=== PATIENT | female | born 1980 | race African-American/Black ===

== ENCOUNTER 2019-07-08 10:24 | Outpatient (CLI) | payer MEDICAID, SELFPAY ==
--- NOTE | ~2019-07-08 | MM_ITS ---
EXAMINATION: MM screening [facility] w [facility] HISTORY: Screening mammogram TECHNIQUE: Craniocaudal and mediolateral oblique 3-D tomosynthesis images were obtained and synthetic 2-D images were generated. Bilateral rotated lateral cc views. CAD analysis was submitted and interp reted. COMPARISON: No prior mammogram is available for comparison at this institution. BREAST PARENCHYMAL COMPOSITION: There are scattered areas of fibroglandular density. FINDINGS: Occasional benign right calcifications. There is no evidence of suspicious mass, calcificat ion, or architectural distortion to suggest malignancy in either breast. There has been no suspicious interval change. IMPRESSION: 1. No mammographic evidence of malignancy. 2. Recommend routine screening mammography in one year. BI-RADS Category 2: Benign finding(s). Reviewed, dictated and finalized at location [facility].
== END 2019-07-08 10:25 | disposition home or self-care (01) ==
LOC: ANHIMG 10:29
PROVIDERS: Visit Provider Nurse Practitioner Obstetrics & Gynecology
DX: Z12.31 Encounter for screening mammogram for malignant neoplasm of breast (principal)
CPT/HCPCS: 77063; 77067

== ENCOUNTER 2020-08-09 05:14 | Emergency (ER) | payer BC, SELFPAY ==
[2020-08-09 05:19] VITALS: BP 114/68; PULSE 82; RESP 16; TEMP 36.8; O2SAT 100
== END 2020-08-09 06:40 | disposition left against medical advice (07) ==
PROVIDERS: PCP Family Medicine
DX: S40.022A Contusion of left upper arm, initial encounter (principal)
CPT/HCPCS: 99199

== ENCOUNTER 2021-04-12 13:50 | Outpatient (CLI) | payer BC, SELFPAY ==
--- NOTE | ~2021-04-12 | MM_ITS ---
EXAMINATION: MM screening osvaldo BI w [facility] HISTORY: Screening mammogram TECHNIQUE: Craniocaudal and mediolateral oblique 3-D tomosynthesis images were obtained and synthetic 2-D images were generated. CAD analysis was submitted and interpreted. COMPARISON: 07/08/2019 BREAST PARENCHYMAL COMPOSITION: There are scattered areas of fibroglandular density. FINDINGS: RIGHT BREAST: An asymmetry is present in the middle third of the upper outer quadrant of the breast o n the mediolateral oblique view. LEFT BREAST: There is no evidence of suspicious mass, calcification, or architectural distortion to s uggest malignancy. There has been no significant interval change. IMPRESSION: 1. Left breast asymmetry. 2. Additional mammographic views and possible breast ultrasound are recommended. BI-RADS Category 0: Incomplete: Needs additional imaging evaluation. Reviewed, dictated and finalized at location [facility]. [employer] IMPRESSION: 1. Left breast asymmetry. 2. Additional mammographic views and possible breast ultrasound are recommended . BI-RADS Category 0: Incomplete: Needs additional imaging evaluation.
== END 2021-04-12 13:51 | disposition home or self-care (01) ==
LOC: ANHIMG 13:54
PROVIDERS: PCP Family Medicine; Visit Provider Nurse Practitioner Obstetrics & Gynecology
DX: Z12.31 Encounter for screening mammogram for malignant neoplasm of breast (principal); R92.8 Other abnormal and inconclusive findings on diagnostic imaging of breast
CPT/HCPCS: 77063; 77067

== ENCOUNTER 2021-06-23 21:05 | Emergency (ER) | payer BC, SELFPAY ==
--- NOTE | ~2021-06-23 | CT_ITS ---
EXAMINATION: CT abdomen pelvis w con DATE: 06/23/2021 22:47 INDICATION: Lower abdominal pain, colitis for 2 to 3 weeks. Nausea, vomiting, diarrhea. TECHNIQUE: Computed tomography (CT) of the abdomen and pelvis was performed with 100 CC Omnipaque 350 intravenous contrast. Automated exposure control and iterative reconstruction technique were employe d. Exam dose: 364.01 mGy-cm total exam DLP. COMPARISON: None. FINDINGS: The lung bases are clear of consolidation. Heart size is within normal range. No pericardia l or pleural effusion. There is focal fatty infiltration of the medial segment of the left hepatic lobe along the fissure fo r the ligamentum teres. No hepatic, splenic, pancreatic, and adrenal or renal space-occupying mass le hitesh is detected. Normal caliber of the abdominal aorta. No intraperitoneal or retroperitoneal or pelvic mass lesion or adenopathy or ascites. There is mild fluid accumulation in the uterine endometrial cavity. No adnexal mass lesion is evident . Normal appendix. There is circumferential prominent soft tissue thickening throughout the rectum and colon of concern for possible ulcerative colitis rather inflammatory or infectious diffuse colitis. There are nondilat ed fluid distended small bowel segments with air-fluid levels. No bowel obstruction or intraperitoneal free air is detected. IMPRESSION: Prominent circumferential diffuse colon wall thickening, from rectum to cecum; ulcerativ e colitis or other inflammatory or infectious colitis versus suspected there may be associated enteri tis. Normal appendix Reviewed, dictated and finalized at [facility]. Reviewed, dictated and finalized at location [facility]. IMPRESSION: Prominent circumferential diffuse colon wall thickening, from rect um to cecum; ulcerative colitis or other inflammatory or infectious colitis gricelda nader suspected there may be associated enteritis. Normal appendix
[2021-06-23 21:06] VITALS: BP 135/60; PULSE 80; RESP 16; TEMP 36.2; O2SAT 100
--- NOTE | 2021-06-23 21:38 | ED.ABDPAIN ---
HPI - Abdominal Pain General Chief Complaint: Nausea/Vomiting/Diarrhea Stated Complaint: stomach flu Time Seen by Provider: 06/23/21 21:17 Source: patient and RN notes reviewed Mode of arrival: ambulatory Limitations: no limitations History of Present Illness HPI narrative: 40-year-old female with history of colitis presenting to the emergency department for evaluation of nausea vomiting and diarrhea. Patient states she had intermittent issues with her colitis over the last 10 years. Patient states she does have follow-up with GI. Patient was unsure if her diagnosis was ulcerative colitis. Patient states since the she has had increased diarrhea and has had multiple pounds of weight loss. Patient denies any significant abdominal pain except for when she is passing stool. Patient states he did have some blood stool. Patient states she has been unable to retain her mesalamine suppository due to her diarrhea. Patient states today she was started on p.o. mesalamine. Patient is currently not on any prednisone. Related Data Home Medications Medication Instructions Recorded Confirmed amlodipine 5 mg PO DAILY 06/23/21 mesalamine 1.2 g PO QID 06/23/21 06/23/21 Allergies Allergy/AdvReac Type Severity Reaction Status Date / Time diphenhydramine Allergy Unknown Hives Verified 06/23/21 21:05 Review of Systems Review of Systems: CONSTITUTIONAL: Denies fever, chills, or sweats. EYES: Denies visual changes, redness, or discharge. ENT: Denies rhinorrhea, congestion, sore throat, or otalgia. CARDIOVASCULAR: Denies chest pain, palpitations, or edema. RESPIRATORY: Denies cough or dyspnea. GASTROINTESTINAL: Diarrhea and intermittent abdominal pain. Patient does report some nausea without vomiting. GENITOURINARY: Denies dysuria or hematuria. SKIN: Denies rash or itching. MUSCULOSKELETAL: Denies back pain, joint pain, or myalgia. NEUROLOGIC: Denies headache, numbness, or weakness. [facility] Family History Family History (Updated 11/13/13 @ 07:13 by DOCTOR UNKNOWN) Mother Hypertension Social History Social History Smoking status: Never smoker Alcohol intake: current Exam Narrative: APPEARANCE: Well appearing, no pain, no distress, well-nourished. HEAD: normocephalic, atraumatic. EYES: PERRLA/EOMI, conjunctivae clear. NOSE: Normal no drainage NECK: Supple. No adenopathy, no masses. RESPIRATORY: Airway patent, respirations nonlabored. Clear to auscultation bilaterally, no rales, rhonchi, wheezing. CARDIOVASCULAR: Regular rate and rhythm without murmurs rubs or gallops. ABDOMINAL: Soft, nontender, nondistended, normal bowel sounds MUSCULOSKELETAL: Moves all extremities. Strength/ROM intact, No edema, No calf tenderness. NEURO: Alert. Cranial nerves II through XII intact. grossly intact. SKIN: Warm, dry. Normal Color Course Course Emergency Course: Patient was updated the results of her labs and imaging. CT scan did show evidence of ulcerative colitis. Patient does have follow-up scheduled with GI. Patient has no leukocytosis and is afebrile with no tenderness to palpation. Treating patient with a dose of steroids and patient will have close follow-up with her GI physician. Patient was educated on reasons to return to the emergency department. All questions and concerns were addressed. Patient was improved at time of discharge Vital Signs Vital signs: Vital Signs Temperature 97.2 F L 06/23/21 21:06 Pulse Rate 80 06/23/21 21:06 Respiratory Rate 16 06/23/21 21:06 Blood Pressure 135/60 06/23/21 21:06 Pulse Oximetry 100 06/23/21 21:06 Temperature 97.2 F L 06/23/21 21:06 Pulse Rate 79 06/23/21 22:59 Respiratory Rate 18 06/23/21 22:59 Blood Pressure 134/71 06/23/21 22:59 Pulse Oximetry 98 06/23/21 22:59 MDM - Abdominal Pain Differential Diagnosis Differential diagnosis: Likely abdominal pain Lab Data Attestation: I reviewed the patient's lab results. Result diagrams: 06/23
[2021-06-23] MEDS: SODIUM CHLORIDE 0.9% IV 1,000 ML 999 ML IV CONT (21:45)
[2021-06-23 21:46] LABS: Basophils Absolute Auto 0.1 K/mm3 (0.0-0.1); Basophils Percent Auto 0.9 % (0.2-1.2); Eosinophils Absolute Auto 0.7 K/mm3 (0-0.3); Eosinophils Percent Auto 12.7 % (0-4.4); Hematocrit 30.9 % (37.0-47.0); Immature Granulocyte Absolute 0.04 K/mm3 (0.00-0.031); Immature Granulocyte Percent A 0.8 % (0-0.5); Lymphocytes Absolute Auto 1.21 K/mm3 (0.9-3.2); Mean Corpuscular HGB Conc 32.4 g/dl (32-36); Mean Corpuscular Hemoglobin 28.1 pg (26-34); Mean Corpuscular Volume 86.8 fl (80-100); Mean Platelet Volume 9.6 fl (7.4-10.4); Monocytes Absolute Auto 0.7 K/mm3 (0.1-0.6); Monocytes Percent Auto 12.9 % (2.6-8.5); Neutrophils Absolute Auto 2.6 K/mm3 (1.3-6.7); Neutrophils Percent Auto 49.7 % (45.5-73.1); Platelet Count Result 450 k/mm3 (150-375); Red Blood Count 3.56 M/mm3 (4.2-5.4); Red Cell Distribution Width 12.7 % (11.5-14.5); White Blood Count 5.3 K/mm3 (4.5-10.0)
[2021-06-23 21:55] LABS: Ovalocytes 1+ (NORMAL); Platelet Estimate Increased (Adequate)
[2021-06-23 22:16] LABS: Alanine Aminotransferase 8 U/L (4-35); Albumin Level 3.1 g/dL (3.5-5.1); Alkaline Phosphatase 65 U/L (38-126); Anion Gap 4 mmol/L (8-16); Aspartate Amino Transferase 25 U/L (14-36); Bilirubin,Total 0.1 mg/dL (0.2-1.3); Blood Urea Nitrogen 8 mg/dL (7-17); Calcium 7.6 mg/dL (8.4-10.2); Carbon Dioxide 28 mmol/L (22-30); Chloride 104 mmol/L (98-107); Estimated CRCL calculation 93 ml/min; Estimated Glomerular Filt Rate > 60; Glucose 122 mg/dL (65-110); Lipase 56 U/L (23-300); Potassium 3.4 mmol/L (3.4-5.0); Sodium 136 mmol/L (137-145)
[2021-06-23 22:39] LABS: Add Urine Microscopic? YES; Appearance Urine Clear (Clear); Bilirubin Urine Negative (Negative); Blood Urine 1+ (Negative); Color Urine Straw (Yellow); Glucose Urine UA Negative (Negative); Ketones Urine Trace mg/dL (Negative); Leukocyte Esterase Ur Negative LEU/UL (Negative); Mucus Urine Rare /lpf; Nitrate Urine Negative (Negative); Protein Urine Negative (Negative); RBC Urine 0-2 /hpf (0-2); Specific Grav Ur 1.012 (1.001-1.035); Squamous Epithelial Cell Urine Few /hpf (Few); Urobilinogen Urine Negative mg/dL (<2.0); WBC Urine 0-3 /hpf
[2021-06-23 22:59] VITALS: BP 134/71; PULSE 79; RESP 18; O2SAT 98
[2021-06-23] MEDS: predniSONE 20 MG TABLET 40 MG PO (23:52)
== END 2021-06-23 23:54 | disposition home or self-care (01) ==
PROVIDERS: Emergency Provider Emergency Medicine; PCP Family Medicine
DX: K52.9 Noninfective gastroenteritis and colitis, unspecified (principal)
CPT/HCPCS: 36415; 74177; 80053; 81001; 81025; 83690; 85025; 96360; 99284; J7030; J7512; Q9967

== ENCOUNTER 2022-08-07 15:00 | Outpatient (CLI) | payer BC, SELFPAY ==
--- NOTE | ~2022-08-07 | MR_ITS ---
EXAMINATION: MR brain/brain stem wo con DATE: 08/07/2022 16:01 INDICATION: Chronic daily headaches. TECHNIQUE: Magnetic resonance imaging (MRI) of the brain and brainstem was performed without intraven ous contrast. COMPARISON: None. FINDINGS: There is no intracranial hemorrhage, acute infarction, or abnormal intracranial mass lesion . The ventricles are normal in size. The paranasal sinuses are clear. The orbits are normal. The mast oid air cells are normal. IMPRESSION: 1. Normal brain. Reviewed, dictated and finalized at location A. IMPRESSION: 1. Normal brain.
== END 2022-08-07 15:01 | disposition home or self-care (01) ==
PROVIDERS: PCP Family Medicine; Visit Provider Family Medicine
DX: R51.9 Headache, unspecified (principal)
CPT/HCPCS: 70551

== ENCOUNTER 2023-05-16 00:37 | Day surgery (SDC) | payer BC, SELFPAY ==
[2023-05-11 17:29] VITALS: BMI 26.6
--- NOTE | 2023-05-11 17:54 | PC.NURSE ---
Report to the Outpatient Waiting Room, entrance under the green pavilion located off [facility], at 1100 on 05-16-23. Planned Procedure Time: 1300. Time changes happen often and if your time is changed the preop area will call you the afternoon before. - You and your visitor will be asked to self-screen and do not enter if you have any COVID symptoms. - A mask is optional within the hospital at this time. Patients may have clear liquids (water, carbonated beverages, clear teas, apple juice) until 3 hours prior to surgery with a maximum of 20 ounces. 1000 - No food from midnight until time of surgery - Infants may have breast milk until 4 hours before surgery, formula 6 hours prior to surgery. - Children will be allowed to drink immediately following surgery. If applicable, please bring a bottle or sippy cup to assist with drinking. Juice, water, soda, and popsicles are readily available. For infants on formula, please bring formula the day of surgery. Pacifiers are allowed. Take the following medications with a SIP of water the morning of surgery: amlodipine. propanolol Bring inhaler DOS DO NOT STOP ANY OF YOUR OTHER PRESCRIPTION MEDICATIONS PRIOR TO SURGERY ?EXCEPT THE FOLLOWING Medications to discontinue per physician: vitamins and supplements Date to take last dose: 05-13-23 Please no make-up, nail khmer, hairspray, perfume, deodorant, or body powder the day of surgery. No jewelry (including any body piercings) or valuables the day of surgery, leave them at home. Please take a shower or bath the night before, or the morning of, surgery with an antibacterial soap. Wear comfortable, loose fitting clothing. Children are encouraged to wear pajamas. - Jewelry must be removed prior to entering the operating room. Rings and piercings that are not removed may be cut off. - The hospital will not accept responsibility for valuables. - Please leave all valuables, including medications, at home the day of surgery. If you are going home after surgery, a licensed water tanker driver must drive you home. - NO public transportation without another adult if you receive anesthesia. - We recommend that an adult stay with you for 24 hours following discharge. - We also recommend that you do not drive, make important decision, drink alcoholic beverages, or take any drugs that were not prescribed by your health care provider for at least 24 hours after your discharge time. For Pediatric surgeries, we recommend two adults accompany the child home. Follow any additional instructions given to you from your surgeon. If you or anyone in your household have experienced Covid symptoms in the past week, please notify your surgeon or the nurse liaison at the phone number below for possible testing. Telephone instructions given to Adelita Dhillon and asked if any additional questions and then verbalized understanding. Patient advised to call surgeon office or pre surgery nurse liaison [phone] if any additional questions.
[2023-05-16 11:13] VITALS: BP 120/72; PULSE 60; RESP 18; TEMP 36.2; O2SAT 100
--- NOTE | 2023-05-16 11:38 | P.PNAN_ITS ---
Anes - Initial Pre Proc Eval Procedure: Operation Date: 05/16/23 13:00 Proposed Procedures p Hysteroscopy with Francisca Endometrial Ablation - Brittnee Edwards MD Date/Time: 05/16/23 11:38 Surgeon: Brittnee Edwards MD Pre Op Diagnosis: Menorrhagia Patient Data Age: 42 Gender: F Height: 1.68 m Weight: 75 kg Last Vital Signs Temp 36.2 C L 05/16/23 11:13 Pulse 60 05/16/23 11:13 Resp 18 05/16/23 11:13 BP 120/72 05/16/23 11:13 Pulse Ox 100 05/16/23 11:13 O2 Del Method Room Air 05/16/23 11:13 Allergies Allergy/AdvReac Type Severity Reaction Status Date / Time diphenhydramine Allergy Mild Hives Verified 05/16/23 11:34 dairy Allergy Mild Nausea Uncoded 05/16/23 11:34 Home Medications Medication Instructions Recorded Confirmed Type amlodipine 5 mg tablet 5 mg PO DAILY 06/23/21 05/16/23 History mesalamine 1.2 gram tablet,delayed 1.2 g PO TID 06/23/21 05/16/23 History release albuterol sulfate 90 mcg/actuation See Rx Instructions .Route .COMPLEX 05/11/23 05/16/23 History aerosol inhaler clindamycin HCl 300 mg capsule 300 mg PO BID 05/11/23 05/16/23 History multivit with minerals-iron 18 1 tablet PO DAILY 05/11/23 05/16/23 History mg-folic ac 400 mcg-vit K 25 mcg tablet (Adults Multivitamin) propranolol 20 mg tablet 20 mg PO TID 05/11/23 05/16/23 History soy isoflavone 40 mg tablet 20 mg PO DAILY 05/11/23 05/16/23 History Patient hx anesthesia problems: none Family hx anesthesia problems: none Results Review: All pre-operative results and documents have been reviewed as part of the pre- operative evaluation. [facility] Past Medical History Medical History (Updated 05/16/23 @ 11:39 by Donovan Granger MD) Abnormal uterine and vaginal bleeding, unspecified Colitis Family History Family History Mother Hypertension Social History Social History Smoking status: Never smoker Second hand tobacco smoke exposure: No Alcohol intake: current Drinks per week: 6 Alcohol use details: mixed drinks Substance use: never Substance use type: does not use Living arrangements: with family Spiritual care concerns: No Anes - Eval Final PreProcedure Day of Procedure 05/16/23 11:38 Patient weight: overweight Last oral intake: >/= 8 hours ASA classification: II Emergent: no Anesthetic plan: proceed Anesthesia type and monitoring: general GIVS and standard monitoring Results Review: All pre-operative results and documents have been reviewed as part of the pre- operative evaluation. Informed Consent: The patient's anesthetic plan and its attendant risks and benefits were discussed with the patient/family/POA. Questions were solicited and answers provided to the satisfaction of the patient/family/POA.
[2023-05-16] MEDS: LACTATED RINGERS 1,000 ML 30 ML IV CONT (11:45)
--- NOTE | 2023-05-16 13:10 | PM.IMHP ---
H&P: HPI History of Present Illness Date/Time: 05/16/23 13:10 Chief Complaint: heavy Vaginal bleeding Narrative: this patient is a 42-year-old female with severe menorrhagia. We have agreed to perform endometrial ablation with hysteroscopy. She understands the procedure. Has been explained to her in detail. She understands that injuries may occur that result in hospitalization, more surgery, and severe illness. She understands that there is risk of hemorrhage and infection. She denies any chest pain or shortness of breath. She denies any nausea, vomiting, fever, chills. Review of Systems Review of Systems: All systems reviewed & are unremarkable except as noted in HPI and below Constitutional: Constitutional: Denies chills, Denies fatigue, Denies fever(s) and Denies weakness Eyes: Eyes: Denies blurry vision, Denies change in vision, Denies loss of peripheral vision, Denies loss of vision, Denies other visual disturbances and Denies eye pain ENT: Denies vertigo, Denies dizziness, Denies hearing loss, Denies mouth pain, Denies nasal obstruction, Denies neck mass and Denies neck pain Cardiovascular: Cardiovascular: Denies chest pain, Denies diaphoresis, Denies syncope, Denies leg edema and Denies dyspnea Respiratory: Respiratory: Denies chest congestion, Denies cough, Denies hemoptysis, Denies dyspnea and Denies wheezing Gastrointestinal: Gastrointestinal: Denies abdominal pain, Denies constipation, Denies diarrhea, Denies nausea and Denies vomiting Genitourinary: Genitourinary: Denies hematuria, Denies change in libido, Denies nocturia, Denies genital lesions, Denies flank pain and Denies urinary urgency Musculoskeletal: Musculoskeletal: Denies abnormal gait, Denies back pain, Denies myalgias, Denies arthralgias, Denies joint swelling, Denies muscle weakness and Denies neck pain Integumentary/Breasts: Skin/Breast: Denies swelling, Denies breast pain, Denies breast mass, Denies dry skin, Denies nipple discharge, Denies unusual bruising and Denies jaundice Neurologic: Denies Neuro-related abnormal movements, Denies Abnormal speech present, Denies abnormal gait, Denies behavioral changes, Denies confusion, Denies vertigo, Denies dizziness, Denies syncope, Denies loss of vision, Denies memory loss, Denies convulsions and Denies weakness Psychiatric: Psychiatric: Denies abnormal sleep pattern, Denies behavioral changes, Denies change in libido, Denies confusion, Denies depression, Denies anhedonia and Denies memory loss Endocrine: Endocrine: Reports no additional endocrine complaints, Denies change in libido and Denies fatigue Hematologic/Lymphatic: Hematologic/Lymphatic: Reports no additional hematologic/lymphatic complaints Allergic/Immunologic: Allergic/Immunologic: Reports no additional allergic/immunologic complaints and Denies wheezing PMFSH Past Medical History Medical History (Updated 05/16/23 @ 13:11 by Brittnee Edwards MD) Abnormal uterine and vaginal bleeding, unspecified Colitis Family History Family History Mother Hypertension Social History Social History Smoking status: Never smoker Second hand tobacco smoke exposure: No Alcohol intake: current Drinks per week: 6 Alcohol use details: mixed drinks Substance use: never Substance use type: does not use Living arrangements: with family Spiritual care concerns: No Meds Home Medications and Allergies Home Medications Medication Instructions Recorded Confirmed Type amlodipine 5 mg tablet 5 mg PO DAILY 06/23/21 05/16/23 History mesalamine 1.2 gram tablet,delayed 1.2 g PO TID 06/23/21 05/16/23 History release albuterol sulfate 90 mcg/actuation See Rx Instructions .Route .COMPLEX 05/11/23 05/16/23 History aerosol inhaler clindamycin HCl 300 mg capsule 300 mg PO BID 05/11/23 05/16/23 History multivit with minerals-iron 18 1 ta
--- NOTE | 2023-05-16 13:12 | WPDHPUPDATE1 ---
History and Physical Update Update Date/Time: 05/16/23 13:12 History and Physical has been reviewed, including an updated exam of the patient. There are NO changes in the patient's condition. Risks, benefits, and alternatives have been discussed and questions answered. Patient agrees to proceed with procedure.
[2023-05-16] MEDS: LIDOCAINE HCL 1% LOCAL INJ 20 ML VIAL 10 ML INFILTRATE (13:52)
[2023-05-16] MEDS: KETOROLAC 30 MG/ML VIAL (*BKC) IV PUSH (13:58)
[2023-05-16 14:08] VITALS: BP 125/63; PULSE 66; RESP 12; O2SAT 96
--- NOTE | 2023-05-16 14:14 | W.PM.PROC2 ---
Procedure Note - Detailed Date of Procedure 05/16/23 Pre-op Diagnosis Menorrhagia Post-op Diagnosis Same Procedure Performed endometrial ablation with hysteroscopy d&c Surgeon Brittnee Edwards MD Anesthesia MAC Indications Severe menorrhagia Findings Normal vulva vagina and cervix. Normal endometrium. Description of Procedure The patient was taken to the operating room. She was prepped and draped in the dorsal lithotomy position after induction of mac anesthesia. A speculum was placed in the vagina. Cervix grasped with a tenaculum. The cervix was dilated to about 1 cm. The hysteroscope was inserted. The above findings were noted. Endometrial curettage was performed with a medium-size curette. All surfaces of the endometrium were affected by the curettage. The specimens were collected and sent to pathology. Measurements were taken of the uterus and cervix. The uterine length was then entered into the hand piece of the Francisca device. The device was inserted into the intrauterine cavity. The array of the device was expanded. The balloon cuff was inflated. A good seal was achieved. The energy and safety cycles were initiated and completed. The array was collapsed and the instrument was withdrawn after deflating the balloon cuff. Hysteroscope was reinserted. Above findings were noted. The hysteroscope was removed. The patient tolerated the procedure well. The speculum and tenaculum were removed. She was taken to recovery in stable condition. Sponge lap and needle counts were correct x2. Estimated Blood Loss 15 Pathology Yes Complications No immediate complications Condition Stable Disposition Same day
[2023-05-16 14:34] VITALS: BP 117/64; PULSE 54; RESP 16
[2023-05-16 15:04] VITALS: BP 133/90; PULSE 61; RESP 16
== END 2023-05-16 15:10 | disposition home or self-care (01) ==
PROVIDERS: PCP Family Medicine; Visit Provider Obstetrics & Gynecology
PROC: 0U5B8ZZ Destruction of Endometrium, Via Natural or Artificial Opening Endoscopic (ICD-10-PCS; CPT 58563; principal; 2023-05-16 13:00)
DX: N92.0 Excessive and frequent menstruation with regular cycle (principal)
CPT/HCPCS: 58563; 88305; A9270; J1100; J1885; J2250; J2405; J2704; J3010; J7120

== ENCOUNTER 2025-01-10 11:00 | Emergency (ER) | payer BC, SELFPAY ==
--- NOTE | ~2025-01-10 | CT_ITS ---
CT abdomen pelvis w con Clinical History: ulcerative colitis . Comparison: CT abdomen pelvis 06/23/2021 Technique: Axial images lung bases to symphysis pubis IV contrast information not listed in PACS Coronal, sagittal reformats CT images acquired with automatic exposure control for dose reduction DLP: 496 mGy-cm Findings: Lung bases: Clear. Visualized heart and pericardium: Unremarkable. Liver: Steatosis. Enlarged. Gallbladder: Unremarkable. Spleen: Unremarkable. Pancreas: Unremarkable. Adrenal glands: Unremarkable. Kidneys: Right kidney- No hydronephrosis. No renal stones. Left kidney- No hydronephrosis. No renal stones. Distal esophagus/stomach: Unremarkable. Small bowel loops: Normal caliber and wall thickness. Colon: Rectosigmoid wall thickening. Normal RLQ appendix. Nodes: No enlarged nodes. Peritoneum: No ascites. No free air. Urinary bladder: Unremarkable. Uterus: Small exophytic fibroid. Adnexa: No masses. Corpus luteal cyst right side. No cystic focus bilaterally. Bones: No acute bony abnormality. Soft tissues: Unremarkable. Aorta: No aneurysm or dissection. IVC: Unremarkable. Main portal vein/SMV/splenic vein: Patent. IMPRESSION: 1. Rectosigmoid colitis. No complicating features. 2. No other acute abnormality. Reviewed, dictated and finalized at location R.
--- OUTSIDE RECORDS SUMMARY | 2025-01-10 11:02 | XMS_ITS | Data Portability ---
Author Organization [place] [facility] [employer], Main Office Address [address] [place] [address] Assessment No assessment recorded. Plan of Treatment Reminders Order Date Submit Date Provider Last Modified By Organization Details Last Modified Time Details Appointments None recorded. Lab vitamin D, 25-hydroxy, total, serum [address] (Lab), [address] [place], [address], 5 09:46:48 vitamin B12 + folate, serum or blood [address] (Lab), [address] [place], [address], 5 09:46:48 CBC w/ auto diff [address] (Lab), [address] [place], [address], 5 09:46:47 CMP, serum or plasma [address] (Lab), [address] [place], [address], 5 09:46:48 glycohemogl obin, total, blood [address] (Lab), [address] [place], [address], 5 09:46:48 lipid panel, serum 2024 025 [facility] (Lab), [address] [place], [address], 5 09:46:48 TSH, serum or plasma 2024 025 [email or web address] (Lab), [address] [place], [address], 5 09:46:48 hemoglobin A1C, fingerstick [address], [place], [address], 3 15:35:45 Referral neurologist referral - Tremor since age 9. Plese eval and treat. Please call patient to schedule an appointment . Thank you 2023 024 [email or web address] [facility], [address] [place] [address] [address], [place], [address], 4 08:48:50 Procedures None recorded. Surgeries None recorded. Imaging MAMMO, screening, digital, bilateral 2023 024 [email or web address] 256 [facility] ([facility]), [address] [place], [address], 4 09:36:15 MRI, brain, w/o contrast - *please call pt to schedule* 2022 023 [facility], [address], [place], [address], 3 07:39:58 Medication Orders zolpidem 10 mg tablet 2024 025 [facility], [address], [place], [id number], 5 17:34:02 mesalamine 400 mg capsule (with delayed release tablets inside) 2024 025 ROB [facility]16798, [address], [place], [place], [id number], 5 17:33:59 carbidopa 25 mg-levodopa 100 mg tablet 2023 024 [facility] #11744, [address], [place], [place], [id number], 5 17:12:02 cyclobenzap rine 10 mg tablet 2022 023 [email or web address] [facility] #21886, [address] [facility], [place], [place], [id number], 4 09:49:21 Patient TargetsNo targets recorded. Patient Instructions Encounter Date Encounter Id Patient Instructions Last Modified By Organization Details Last Modified Time 11/05/2024 [id number] PT WITH IBD- UC . DOING WELL WITH MESALAMINE 400 MG , 2 TABS TID . CONT SAME . F/U IN 6 MTHS. [email or web address] Not available 11/05/2024 16:26:33 Reason for Referral Neurologist Referral for Marcos mor Tremor since age 9. Plese eval and treat. Please call patient to schedule an appointment. Thank you Referring Physician: Lanre Johnson, Family Medicine, Encounter Date: 10/16/2023 Results Created Date Observation Date Name Description Value Unit Range Abnormal Flag Note LastModifiedBy Organization Detail LastModifiedTime 07/19/1907/18/2022 hemog lobin A1C, finge rstic k HgbA1C 5.7 Not Available [address], [place], [address], 07/18/2022 14:54:53 08/09/19 23 08/07/2022 MRI, brain , w/o contr ast No observ ation record ed. [address], [place], [address], 08/08/2022 08:48:43 09/16/19 23 MAMMO , scree kacy, digit al, bilat eral [facility] [address] [place] [address] [phone] Chet duarte Name: MALIHA CARSON Access ion #: [id number] Sex: F : 1980 0 Locati on: RA2 Attend ing Physic arabella: ELKHAT IB, RUNDA Orderi ng Physic arabella: ELKHAT IB, RUNDA Exam Date: 023 1:51 PM Exam Name: DIGITA L CAMILO BILAT SCREEN Admitt ing Diagno sis(es ): RADIOL OGY REPORT - FINAL EXAM: MG DIGITA L CAMILO BILAT SCREEN HISTOR Y: screen ing mammog abe COMPAR ANNETTE: 2021, 2021 TECHNI QUE: Bilate ral CC and MLO views of the breast s were perfor med. Digita l Mammog kamla images were obtain ed. CAD (compu ter assist ed detect ion) was utiliz ed. FINDIN GS: There are scatte red areas of fibrog landul ar densit y. Left breast : No masses , asymme tries, suspic ious calcif icatio ns, or ava ectura l distor tion are seen. Page 1 of 2 [facility] Chet duarte Name: MALIHA CARSON Access ion #: [id number] Sex: F : 1980 0 Exam Date: 023 1:51 PM Exam Name: DIGITA L CAMILO BILAT SCREEN Admitt ing Diagno sis(es ): IMPRES DEMETRIUS: BIRADS 0: Assess ment incomp lete. Recomm end additi onal imagin g of the right breast with XCC and rolled images as well as spot images of the area of asymme try, recomm end a true latera l view of the right breast . Also recomm end ultras ound of the upper- outer area of asymme try. Create d and electr onical ly signed by: Luis Felipe gates MD Signed Date: 5:05 PM (CT) Dictat ed by: Luis Felipe gates MD DD: 5:05 PM (CT) DT: 5:05 PM (CT) Page [address] (Imaging) [address] [place], [address], 09/18/2022 09:34:44 09/16/19 23 09/15/2022 MAMMO , scree kacy, bilat eral No observ ation record ed. [address] [place], [address], 09/18/2022 09:34:45 10/04/19 23 10/03/2022 MAMMO , diagn ostic , digit al, unila teral , w/ CAD [facility] [address] [place] [address] Patien t Name: MALIHA CARSON Access ion #: [id number] Sex: F : 1980 6 Dictat ed By: Charanjit herrera Attend ing Physic arabella: YOLANDA BROWNING Orderi Physic arabella: LASHAWN LY IB Exam Date: 2022 11:42 AM Exam Name: MG MAMMO DIGITA L UNILAT RT Admitt ing Diagno sis(es ): CLINIC AL HISTOR Y: Abnorm al screen ing mammog abe. No person al histor y of breast cancer or prior breast interv ention . No family histor y of breast cancer . COMPAR ANNETTE: Screen ing mammog abe dated 023, diagno stic right breast mammog abe dated 022, and prior screen ing mammog abe dated 022. Correl ation also made to prior right breast ultras ound dated 022. TECHNI QUE: Spot compre ssion digita l CC and MLO views of the right breast and full field digita l true latera l view of the right breast were obtain ed. Diagno stic limite d right breast ultras ound was also perfor med. FINDIN GS: There are scatte red fibrog landul ar densit ies (categ ory B). The asymme try in the right upper outer breast appear s to partia lly efface with spot compre ssion. Ultras ound was obtain ed to barbara r evalua te. Ultras ound demons trated dense fibroc ystic change s in the 10:00 positi on of the right breast approx imatel y 8 cm from the nipple , likely correl ating with the focal asymme try seen on ultras ound. Intram ammary lymph node in the right axilla measur es 1.9 x 0.6 x 0.9 cm with normal renifo rm shape and echoge don hilum, likely reacti ve lymph node. Small simple cyst measur es up to 0.5 cm in the 10:00 positi on approx imatel y 8 cm from the nipple . IMPRES DEMETRIUS: Benign findin gs. RECOMM ENDATI ONS: In the absenc e of new breast compla ints, annual screen ing is recomm ended. The patien t will be notifi ed of the mammog kamla result s per hospit al protoc ol. BI-RAD S CATEGO RY: 2: Benign . Electr onical ly Signed by: Charanjit herrera at 2022 12:57: 20 PM Page 1 [email or web address] [facility] (Imaging) [address] [place], [address], 10/04/2022 09:47:05 10/04/19 23 10/03/2022 US, hay t, limit ed [facility] [address] [place] [address] [phone] Patien t Name: JEYSON BereMALIHA Leah Access ion #: [id number] Sex: F : 1980 6 Dictat ed By: Charanjit herrera Attend ing Physic arabella: ELKHAT IB, RUNDA Orderi ng Physic arabella: SUNDARDA, ELKHAT IB Exam Date: 2022 12:03 PM Exam Name: US BREAST LIMITE D RT Admitt ing Diagno sis(es ): CLINIC AL HISTOR Y: Abnorm al screen ing mammog abe. No person al histor y of breast cancer or prior breast interv ention . No family histor y of breast cancer . COMPAR ANNETTE: Screen ing mammog abe dated 023, diagno stic right breast mammog abe dated 022, and prior screen ing mammog abe dated 022. Correl ation also made to prior right breast ultras ound dated . TECHNI QUE: Spot compre ssion digita l CC and MLO views of the right breast and full field digita l true latera l view of the right breast were obtain ed. Diagno stic limite d right breast ultras ound was also perfor med. FINDIN GS: There are scatte red fibrog landul ar densit ies (categ ory B). The asymme try in the right upper outer breast appear s to partia lly efface with spot compre ssion. Ultras ound was obtain ed to barbara cooney te. Ultras ound demons trated dense fibroc ystic change s in the 10:00 positi on of the right breast approx imatel y 8 cm from the nipple , likely correl ating with the focal asymme try seen on ultras ound. Intram ammary lymph node in the right axilla measur es 1.9 x 0.6 x 0.9 cm with normal renifo rm shape and echoge don hilum, likely reacti ve lymph node. Small simple cyst measur es up to 0.5 cm in the 10:00 positi on approx imatel y 8 cm from the nipple . IMPRES DEMETRIUS: Benign findin gs. RECOMM ENDATI ONS: In the absenc e of new breast compla ints, annual screen ing is recomm ended. The patien t will be notifi ed of the mammog kamla result s per hospit al protoc ol. BI-RAD S CATEGO RY: 2: Benign . Electr onical ly Signed by: Charanjit herrera at 2022 12:57: 20 PM Page [address] (Imaging) [address] [place], [address], 10/04/2022 09:47:05 10/04/19 23 10/03/2022 MAMMO , diagn ostic , digit al, unila teral No observ ation record ed. [address] [place], [address], 10/04/2022 09:47:05 10/04/19 23 10/03/2022 US, breas t, unila teral No observ ation record ed. [address] [place], [address], 10/04/2022 09:47:06 02/29/20 24 02/29/2024 MAMMO , scree kacy, digit al, bilat eral No observ ation record ed. [address] [place], [address], 03/13/2024 15:14:05 02/29/20 24 02/29/2024 MAMMO , scree kacy, digit al, bilat eral No observ ation record ed. [address] [place], [address], 03/13/2024 15:14:05 Result Notes Documentation Provider Name and Address Organization Details Recorded Time Mammo, Screening, Digital, Bilateral : [facility] [address] [place] [address] Patient Name: ADELITA AUGUSTIN Sex: F : 1980 Location: [facility] Attending Physician: YOLANDA MENDOSA Ordering Physician: YOLANDA MENDOSA Exam Date: 09/15/2022 1:51 PM Exam Name: MG DIGITAL CAMILO BILAT SCREEN Admitting Diagnosis(es): RADIOLOGY REPORT - FINAL EXAM: MG DIGITAL CAMILO BILAT SCREEN HISTORY: screening mammogram COMPARISON: 05/06/2021, 04/12/2021 TECHNIQUE: Bilateral CC and MLO views of the breasts were performed. Digital Mammography images were obtained. CAD (computer assisted detection) was utilized. FINDINGS: There are scattered areas of fibroglandular density. Left breast: No masses, asymmetries, suspicious calcifications, or architectural distortion are seen. Page 1 of 2 [facility] Patient Name: ADELITA AUGUSTIN Sex: F : 1980 Exam Date: 09/15/2022 1:51 PM Exam Name: DIGITAL CAMILO BILAT SCREEN Admitting Diagnosis(es): IMPRESSION: BIRADS 0: Assessment incomplete. Recommend additional imaging of the right breast with XCC and rolled images as well as spot images of the area of asymmetry, recommend a true lateral view of the right breast. Also recommend ultrasound of the upper-outer area of asymmetry. Created and electronically signed by: Luis Felipe Chopra MD Signed Date: 09/15/2022 5:05 PM (CT) Dictated by: Luis Felipe Chopra MD (CT) (CT) Page 2 of 2 MICHAEL Ayala [place] [employer] [facility] 09/18/2022 09:34:44 Mammo, Diagnostic, Digital, Unilateral, W/ Cad : [address] [address] Patient Name: ADELITA AUGUSTIN Sex: F : 1980 Dictated By: Thomas Jung Attending Physician: YOLANDA MENDOSA Ordering Physician: NAVYA LY Exam Date: 10/03/2022 11:42 AM Exam Name: MAMMO DIGITAL UNILAT RT Admitting Diagnosis(es): CLINICAL HISTORY: Abnormal screening mammogram. No personal history of breast cancer or prior breast intervention. No family history of breast cancer. COMPARISON: Screening mammogram dated 09/15/2022, diagnostic right breast mammogram dated 05/06/2021, and prior screening mammogram dated 04/12/2021. Correlation also made to prior right breast ultrasound dated 05/06/2021. TECHNIQUE: Spot compression digital CC and MLO views of the right breast and full field digital true lateral view of the right breast were obtained. Diagnostic limited right breast ultrasound was also performed. FINDINGS: There are scattered fibroglandular densities (category B). The asymmetry in the right upper outer breast appears to partially efface with spot compression. Ultrasound was obtained to further evaluate. Ultrasound demonstrated dense fibrocystic changes in the 10:00 position of the right breast approximately 8 cm from the nipple, likely correlating with the focal asymmetry seen on ultrasound. Intramammary lymph node in the right axilla measures 1.9 x 0.6 x 0.9 cm with normal reniform shape and echogenic hilum, likely reactive lymph node. Small simple cyst measures up to 0.5 cm in the 10:00 position approximately 8 cm from the nipple. IMPRESSION: Benign findings. RECOMMENDATIONS: In the absence of new breast complaints, annual screening is recommended. The patient will be notified of the mammography results per hospital protocol. BI-RADS CATEGORY: 2: Benign. Page 1 MICHAEL Ayala, [employer] 10/04/2022 09:47:05 Problems Name Problem SNOMED Code Status Onset Date Resolution Date Notes Provider Name and Address Organization Details Recorded Time [facility] 73219880 Active KERRIE Osborne [address] [facility] [address], [place], [address] , [employer] 5 17:32:25 Recurrent cystitis 225905712 Active 2017 Not Available [facility] 3 12:56:08 Hypertensi ve disorder 95289085 Active 2017 Not Available [facility] 3 12:56:08 Gastroente ritis 11358571 Active 2021 Not Available [facility] 3 12:56:08 Chronic ulcerative proctitis 75378741 Active 2021 Not Available [facility] 3 12:56:08 Diarrhea 78011901 Active 2021 Not Available [facility] 3 12:56:08 Ulcerative colitis 16212692 Active 2021 Not Available [facility] 3 12:56:08 Chronic daily headache 2980229494289 02 Active 2022 Not Available [facility] 3 12:56:08 Prediabete s 573830803 Active 2022 Not Available [facility] 3 12:56:08 Thoracic back pain 104991737 Active 2022 Not Available [facility] 3 12:56:08 Insomnia 974700534 Active 2022 Not Available [facility] 3 12:56:08 Headache 03866731 Active 2022 Not Available [facility] 3 12:56:08 Persistent insomnia 698188573 Active 2022 Not Available [facility] 3 12:56:08 Mammograph y abnormal 227192144 Active 2022 Not Available [facility] 3 12:56:08 Essential hypertensi on 13009128 Active 2022 Not Available [facility] 3 12:56:08 Dyspnea 915286343 Active 2023 MARGO De Leon [address], [address], [place], [address] , [employer] 4 11:39:07 Tremor 68293273 Active 2023 MARGO De Leon [address], [address], [place], [address] , [place] [employer] [facility] 4 10:03:34 Screening for malignant neoplasm of breast Active 2023 MARGO De Leon [address], [address], [place], [address] , [facility] [employer] [facility] 4 10:07:33 Adult health examinatio n Active 2023 MARGO De Leon [address], [address], [place], [address] , [facility] [employer] 4 10:14:08 Vitamin D deficiency 72803563 Active [address] [facility], [facility] [address], [place], [address] , [facility] [employer] 5 17:27:10 Vitamin deficiency 66546356 Active [address] [facility], [facility] [address], [place], [address] , [facility] [employer] 5 12:51:57 Ulcerative pancolitis 722812224 Active 2024 Michelle Perrin MD [address] [facility], [address] [place] [address], [place], [address] , [facility] [employer] 5 16:25:54 Notes:OCCUPATIONAL THERAPY AIDES TEACHER: [facility] Problem Notes None recorded. Procedures Surgical History Date Name Laterality Status Provider Name and Address Organization Details Recorded Time 06/18/19 25 Most Recent Mammogram completed Jackie Orozco RN [facility] [employer] [facility] 09/02/2024 17:18:05 05/18/19 25 Date of Last Colonoscopy completed Jackie Orozco RN [facility] [employer] [facility] 09/02/2024 17:18:29 05/16/19 24 endometrial ablation completed Ruslan Beckett RN [facility] [employer] [facility] 05/16/2023 15:18:57 07/18/19 21 liposuction of subcutaneous tissue completed An Brink RN [facility] [employer] [facility] 10/16/2023 09:52:46 completed Not Available [facility] 0 05/17/2022 18:34:45 Imaging Results None recorded. Procedure Notes None recorded. Medical Equipment None Reported. Allergies Allergen ID Allergen Name Allergen Category Reaction Reaction Severity Criticality Documentation Date Start Date Code Code System Note Provider Name and Address Organization Details Recorded Time 43759 diphenhyd ramine medicatio n Not available Not available Not available 05/17/2022 3498 RxNorm Not Available [facility] 18:36:16 00498 Benadryl medicatio n Not available Not available Not available 05/17/202287731 7 RxNorm Not Available [facility] 3 18:36:16 Medications Name Sig Start Date Stop Date Status Note LastModified by Organization Details LastModified Time cyclobenza christiano 10 mg tablet TAKE 1 TABLET BY MOUTH EVERY DAY NEEDED 10/15 completed Not Available Not Available Not Available venlafaxin e ER 37.5 mg capsule,ex tended release 24 hr TK 1 C PO QD 10/18 completed Not Available Not Available Not Available prednisone 10 mg tablet TAKE 1 TABLET BY MOUTH THREE TIMES DAILY FOR 25 DAYS DIRECTED 2024 active Not Available Not Available Not Avai lable sulfasalaz ine 500 mg tablet TAKE 2 TABLETS BY MOUTH THREE TIMES DAILY DIRECTED active Not Available Not Available No t Available clindamyci n HCl 300 mg capsule TAKE 1 CAPSULE BY MOUTH TWICE DAILY BEFORE MEAL(S) FOR 7 DAYS 10/15 completed Not Available Not Available Not Available azithromyc in 250 mg tablet TAKE 2 TABLETS (500 MG) BY ORAL ROUTE ONCE DAILY FOR 1 DAY THEN 1 TABLET (250 MG) BY ORAL ROUTE ONCE DAILY FOR 4 DAYS 06/23 completed Not Available Not Available Not Available ibuprofen 800 mg tablet TAKE 1 TABLET BY MOUTH EVERY 4-6 HOURS FOR PAIN NEEDED. DO NOT EXCEED 4 TABLETS IN 24 HOURS. active Not Available Not Available No t Available tretinoin 0.025 % topical cream APPLY THIN LAYER TO AFFECTED AREA OF BUTTOCKS BEFORE BEDTIME AFTER WASHING. MOISTURI ZE NEEDED. active Not Available Not Available No t Available prednisone 20 mg tablet 09/01 completed Not Available Not Available Not Available fluoxetine 10 mg tablet TK 1 T PO QD active Not Available Not Available No t Available amlodipine 5 mg tablet TAKE 1 TABLET BY MOUTH EVERY DAY 2024 active Not Available Not Available Not Avai lable peg-electr olyte solution 420 gram oral solution DIRECTED 09/02 completed Not Available Not Available Not Available tramadol 50 mg tablet TAKE 1 TABLET BY MOUTH EVERY 6 HOURS NEEDED 09/01 completed Not Available Not Available Not Available ciclopirox 8 % topical solution PAINT ON A THIN LAYER ON THE AFFECTED NAILS DAILY. REMOVE ONCE WEEKLY WITH NAIL [place] REMOVER AND THEN REPEAT. 09/02 completed Not Available Not Available Not Available benzonatat e 100 mg capsule TK 1 C PO Q 8 H PRN 05/06 completed Not Available Not Available Not Available promethazi ne 25 mg tablet TAKE 1/2 TABLET BY MOUTH EVERY 6 HOURS NEEDED FOR NAUSEA 09/02 completed Not Available Not Available Not Available balsalazid e 750 mg capsule TAKE 3 CAPSULES BY MOUTH THREE TIMES DAILY DIRECTED 10/15 completed done per pt Not Available Not Available Not Available montelukas t 10 mg tablet TAKE 1 TABLET BY MOUTH EVERY DAY active Not Available Not Available No t Available ergocalcif sam (vitamin D2) 1,250 mcg (50,000 unit) capsule TAKE 1 CAPSULE BY MOUTH EVERY WEEK DIRECTED 2024 active Not Available Not Available Not Avai lable polyethyle ne glycol 3350 17 gram/dose oral powder MIX BOTTLE WITH 64 OZ OF GATORADE 10/15 completed Not Available Not Available Not Available zolpidem 10 mg tablet TAKE 1 TABLET BY MOUTH EVERY NIGHT AT BEDTIME active Not Available Not Available No t Available albuterol sulfate HFA 90 mcg/actuat ion aerosol inhaler INHALE 2 PUFFS BY MOUTH EVERY 8 HOURS NEEDED active Not Available Not Available No t Available propranolo l 20 mg tablet TAKE 1 TABLET BY MOUTH THREE TIMES DAILY active Not Available Not Available No t Available carbidopa 25 mg-levodop a 100 mg tablet TAKE 1 TABLET BY MOUTH THREE TIMES DAILY FOR TREMORS 09/02 completed Not Available Not Available Not Available clobetasol 0.05 % scalp solution APPLY TOPICALL Y TO THE AFFECTED AREA DAILY APPLY A THIN LAYER TO THE TO THE SCALP 09/02 completed Not Available Not Available Not Available ondansetro n 4 mg disintegra ting tablet DISSOLVE 1 TABLET ON THE TONGUE EVERY 8 HOURS NEEDED FOR NAUSEA OR VOMITING 10/15 completed Not Available Not Available Not Available doxycyclin e hyclate 100 mg tablet TAKE 1 TABLET BY MOUTH DAILY WITH A FULL MEAL. 09/01 completed Not Available Not Available Not Available clindamyci n phosphate 1 % topical solution APPLY A THIN LAYER TO THE AFFECTED AREA(S) TOPICALL Y TWICE DAILY DURING FLARE UP FOR MAX OF 7 DAYS. 09/02 completed Not Available Not Available Not Available mesalamine 1,000 mg rectal suppositor y UNWRAP AND INSERT 1 SUPPOSIT ORY RECTALLY EVERY DAY AT BEDTIME NEEDED 09/02 completed Not Available Not Available Not Available amlodipine 5 mg daily 02/20 completed Not Available Not Available Not Available prednisolo ne 10 mg disintegra ting tablet DISSOLVE 4 TABLETS ON THE TONGUE DAILY 09/01 completed Not Available Not Available Not Available mesalamine 1.2 gram tablet,del ayed release TAKE 2 TABLETS BY MOUTH ONCE DAILY WITH A MEAL 09/02 completed Not Available Not Available Not Available peg 3350-elect rolytes 236 gram-22.74 gram-6.74 gram-5.86 gram solution MIX AND DRINK DIRECTED 04/04 completed Not Available Not Available Not Available budesonide DR-ER 9 mg tablet,del ayed and extended release TAKE 1 CAPSULE BY MOUTH EVERY MORNING 09/02 completed Not Available Not Available Not Available mesalamine 400 mg capsule (with delayed release tablets inside) TAKE 2 CAPSULES BY MOUTH THREE TIMES DAILY DIRECTED active Not Available Not Available No t Available Humira(CF) Pen Crohn's-Ul c Colitis-Hi d Sup Strt 80 mg/0.8 mL subcut kt INJECT 160 MG /SQ DAY #1, INJECT 80 MG/SQ DAY #15, INJECT 40 MG/SQ DAY #29, THEN 40 MG/SQ EVERY #14 DAYS 10/15 completed pt states she does not know this med and does not take Not Available Not Available Not Available Vitals Date Recorded Body mass index (BMI) Body height Oxygen saturation Oxygen saturation in Arterial blood by Pulse oximetry Heart rate Body temperature Body weight Systolic And Diastolic Provider Name and Address Organization Details Last Updated DateTime 3 26.1 kg/m2 167.64 cm 97 % 97 % 79 /min 97.8 [degF] 52640.9 6 g 140/90 mm[Hg] Not Available [employer] 3 18:34:52 Date Recorded Body height Body mass index (BMI) Body weight Body temperature Heart rate Oxygen saturation Oxygen saturation in Arterial blood by Pulse oximetry Systolic And Diastolic Provider Name and Address Organization Details Last Updated DateTime 3 167.64 cm 26.3 kg/m2 65053.5 6 g 98.1 [degF] 67 /min 98 % 98 % 130/80 mm[Hg] Ne Aguilar Leah [facility] [employer] [facility] 3 14:19:28 Date Recorded Body height Body mass index (BMI) Body weight Body temperature Heart rate Respiratory rate Oxygen saturation Oxygen saturation in Arterial blood by Pulse oximetry Pain severity - 0-10 verbal numeric rating [Score] - Reported Systolic And Diastolic Provider Name and Address Organization Details Last Updated DateTime 5 167.64 cm 27 kg/m2 41534.3 8 g 97.5 [degF] 60 /min 20 /min 97 % 97 % 0 120/78 mm[Hg] Jackie Orozco RN [facility] [employer] [facility] 5 17:15:20 Date Recorded Body height Body mass index (BMI) Body weight Body temperature Heart rate Oxygen saturation Oxygen saturation in Arterial blood by Pulse oximetry Respiratory rate Systolic And Diastolic Provider Name and Address Organization Details Last Updated DateTime 4 167.64 cm 27.6 kg/m2 80328.3 g 98.2 [degF] 64 /min 98 % 98 % 16 /min 132/80 mm[Hg] An Brink RN [facility] [employer] [facility] 4 09:55:39 Date Recorded Body height Body mass index (BMI) Body weight Heart rate Oxygen saturation Oxygen saturation in Arterial blood by Pulse oximetry Systolic And Diastolic Provider Name and Address Organization Details Last Updated DateTime 5 167.64 cm 27.8 kg/m2 11718.8 9 g 79 /min 98 % 98 % 134/94 mm[Hg] Carlos Webb Leah [facility] [employer] [facility] 5 15:47:46 Social History Question Answer Notes LastModified by Organizat ion Details LastModified Time Tobacco Smoking Status Never Smoker Not Available [employer] 05/17/2022 18:34:37 Do You Have An Advance Directive? No Information not available 09/02/2024 What Is Your Level Of Caffeine Consumption? Occasional Information not available 09/02/2024 In The 14 Days Before Symptom Onset, Have You Had Close Contact With A Laboratory-patriciai ed COVID-19 While That Case Was Ill? No [id number] Information not available 05/17/2022 In The 14 Days Before Symptom Onset, Have You Had Close Contact With A Person Who Is Under Investigation For COVID-19 While That Person Was Ill? No [id number] Information not available 05/17/2022 Have There Been Any Changes To Your Family Or Social Situation? No Information not available 09/02/2024 Do You Use Insect Repellent Routinely? No Information not available 09/02/2024 Where Do You Live? [facility] Information not available 09/02/2024 Do You Have A Medical Power Of Senior Engineering Associate? No Information not available 09/02/2024 How Many Children Do You Have? 3 Information not available 09/02/2024 Do You Have Any Pets? Yes Information not available 09/02/2024 What Is Your Relationship Status? Information not available 09/02/2024 Do You Use Your Seat Belt Or Car Seat Routinely? Yes Information not available 09/02/2024 Do You Have Smoke And Carbon Monoxide Detectors In Your Home? Yes Information not available 09/02/2024 Are You Passively Exposed To Smoke? No Information not available 09/02/2024 Are There Any Smokers In Your House? No Information not available 09/02/2024 Do You Participate In Social Media? Yes Information not available 09/02/2024 What Types Of Sporting Activities Do You Participate In? Weight Training, Cardio Information not available 09/02/2024 Do You Use Sunscreen Routinely? Yes Information not available 09/02/2024 Have You Recently Traveled Abroad? No Information not available 09/02/2024 Sex: Unknown Functional Status Question Answer Note LastModified by Organizat ion Details LastModified Time What is your level of alcohol consumption? Moderate [id number] Information not available 05/17/2022 Are you currently employed? 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 Moderate Information not available 09/02/2024 Mental Status Question Answer Note LastModified by Organization D etails LastModified Time Do you feel stressed (tense, restless, nervous, or anxious, or unable to sleep at night)? [id number] Information not available 09/02/2024 Family History Relationship Description Onset Age of this Age Resolved Age Notes LastModified by Organization Details LastModified Time Mother Hypertensive disorder [id number] Not available 05/17/2022 18:34:45 Medical History Condition Response OTHER # 1 Gynecological History Statement/Question Response Date of Last Pap Smear Date of Last Colonoscopy 05/17/2024 Most Recent Mammogram 06/17/2024 Date of LMP Obstetrics History GPAL:G 0 P 0 0 0 0 Past Encounters Encounter ID Performer Location Encounter Start Date Encounter Closed Date Diagnosis/Indication Diagnosis SNOMED-CT Code Diagnosis ICD10 Code Diagnosis IMO Codes Diagnosis Note [id number] Yolanda Estrada MD [facility] [address] [facility] [address] 06/24/2020 00:00:00 06/25/2020 22:33:58 [id number] Yolanda Estrada MD [facility] [place] [address] 10/18/2020 00:00:00 10/18/2020 20:54:15 [id number] Yolanda Estrada MD [facility] [address] [place] [address] 06/14/2021 00:00:00 06/14/2021 21:25:17 [id number] Yolanda Estrada MD [facility] [place] [place] [facility] [address] 06/23/2021 00:00:00 06/24/2021 06:22:34 [id number] _ATHN_MIGR ATION_1 _ATHENA_M IGRATION_ DEFAULT_1 _1 , 07/13/2021 00:00:00 07/13/2021 13:10:21 [id number] Yolanda Estrada MD [facility] [place] [address] [place] [address] 09/01/2021 00:00:00 09/02/2021 06:01:18 [id number] Yolanda Estrada MD [facility] [place] [address] [place] [address] 10/10/2021 00:00:00 10/10/2021 19:32:02 [id number] Yolanda Estrada MD [facility] [place] [address] [place] [address] 04/04/2022 00:00:00 04/04/2022 13:12:31 [id number] Yolanda Estrada MD [facility] [place] [address] [place] [address] 07/18/2022 14:01:14 07/18/2022 15:00:50 Chronic daily headache 0221863129 44188 R51.9 Has thunder clap type headaches and mother has brain abnormalit y a tumor Prediabetes 263971383 R7 3.03 5.7% Thoracic back pain 39469 8004 M54.6 [id number] Valerio Saravia MD [facility] [place] [address] [place] [address] 10/16/2023 09:29:04 10/16/2023 10:10:34 [facility] 46584285 R25.1 Screening for malignant neoplasm of breast 142921581 Z12.39 Adult heal th examination 063474823 Z00.00 Essential hypertension 53159305 I10 Ulcerative colitis 50521 004 K51.90 Persistent insomnia 1919 03517 G47.09 [id number] Valerio Saravia MD [place] [address] [place] [address] 09/02/2024 16:58:44 09/02/2024 17:43:15 Persistent insomnia 109674691 G47.09 Well controlled , takes zolpidem as needed Physical examination 588 0005 Z00.00 [id number] [facility] Bryant scussed diet and exercisePa tient questions answered Vitamin D deficiency 347 16607 E55.9 63229 Colitis 87270359 K52.9 80302 Sees GI, needs refills today [id number] Michelle Perrin MD [facility] General Surgery [address] [place] [address] 11/05/2024 15:44:21 11/05/2024 15:52:42 Ulcerative pancolitis 289184855 K51.00 [id number] Health Concerns Section Related Observation LastModified by Organization Detai ls LastModified Time None Recorded Concern Status LastModified by Organization Details LastModified Time None Recorded Advance Directives Directive N: Payers Insurance Date Sequence Insurance Name Policy Number Policy Hanson Covered Member ID Hanson Member ID Guarantor Name 11/05/2024 1 [place] [facility] - [place] PRIOR TO 2024 (MEDICAID REPLACEMENT - HMO) [id number] Adelita Augustin [id number] Adelita Augustin 11/10/2024 1 [place] [id number] Paul Augustin [id number] Adelita Augustin 11/08/2024 2 [place] Paul Augustin [id number] Adelita Augustin Notes Date Note Type Note Provider Name and Address Organization Details Recorded Time 07/18/2022 text/html Here today for headaches. They are pressure headaches. Has no hx of migraines. Her BP is ok. Has no headache now. Gets dizzy and fatigued. No nausea. Has back pain today it is painful in the center of it. No tingling or numbness down legs. Tylenol is helping.Needs A1C check too.Mother has a hx of headaches and has abnormal findings on a scan. She has a tumor and is followed every couple of years.Pt is concerned that has such intense pressure headaches like a thunder clap headache. It is very painful in the center of her head. Yolanda Estrada MD [address], [place], [address], [employer] 07/18/2022 19:31:20 10/16/2023 text/html ROS as noted in the HPI 43 y/o with chronic hand tremors MARGO De Leon [address], [facility] [address], [place], [address], [employer] 10/25/2023 11:18:34 09/02/2024 text/html Adelita Augustin is a 44 year old female patient here today to establish care. She was previously seen by Hitesh Johnson. History of hypertension. This is well controlled. Patient does not check BP readings at home. She is currently taking amlodipine 5 mgBP on arrival today is _.Patient declines headaches, tinnitus, light headedness, fatigue. She has essential tremors, she is taking propranolol 20 mg BID. She did see a neurologist for this. Insomnia well managed with zolpidem. She only take this as needed. She finds this effective. Flu shot: declinesCOVID vaccines: declinesTdap: declinesMammogram: 02/29/2024 normalWWE scheduled for tomorrowColonoscopy : annual, has colitis. KERRIE Osborne [address], [facility] [address], [place], [address], [employer] 09/02/2024 17:37:56 11/05/2024 text/html ROS as noted in the HPI JAVIER WAS SEEN IN THE OFFICE TODAY FOR A F/U. PT HAS IBD- UC , DOING WELL WITH MESALAMINE 400 MG 2 TABS , 3X DAILY . BMs ARE FORMED W/O BLOOD AND NO ABD PAIN . Michelle Perrin MD [address], [facility] [address], [place], [address], [employer] [facility] [employer] 11/05/2024 16:26:54 OBGyn Episode No OBEpisode recorded.
--- OUTSIDE RECORDS SUMMARY | 2025-01-10 11:02 | XMS_ITS | Clinical Summary ---
Author Organization [facility] Address [address] [place] [address] [place]IDEH Macias [address] Care Team Providers Care Director Of Loss Prevention Name Role Phone Lanre Johnson Primary Care Provider + Allergies Active Allergy Reactions Criticality Noted Date Comments Diphenhydramine Hives Medium 12/17/2023 Medications albuterol HFA (PROVENTIL HFA,VENTOLIN HFA,PROAIR HFA) 90 mcg/actuation inhaler INHALE 2 PUFFS BY MOUTH EVERY 8 HOURS NEEDED 10/30/2023 Active amLODIPine (NORVASC) 5 mg tablet Take 1 tablet (5 mg total) by mouth daily 11/08/2023 Active mesalamine (DELZICOL) 400 mg capsule (with del rel tablets) 11/05/2023 Ac tive propranoloL (INDERAL) 20 mg tablet Take 1 tablet (20 mg total) by mouth 2 (two) times a day 60 tablet 11 12/17/2023 Active Active Problems No known active problems Social History Tobacco Use Types Packs/Day Years Used Date Smoking Tobacco: Never Smokeless Tobacco: Never Tobacco Cessation:Counseling Given: Not Answered Personal Safety Answer Date Recorded Getting School Help Needed Not on file 12/13 Comments Unknown Sex and Gender Information Value Date Recorded Sex Assigned at Not on file 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 Gender Identity Not on file Sexual Orientation Not on file Obstetrics History Last Filed Vital Signs Vital Sign Reading Time Taken Comments Blood Pressure - - Pulse - - Temperature - - Respiratory Rate - - Oxygen Saturation - - Inhaled Oxygen Concentration - - Weight 75.8 kg (167 lb) 12/17/2023 2:00 PM CDT Height 167.6 cm (5' 6) 12/17/2023 2:00 PM CDT Body Mass Index 26.95 12/17/2023 2:00 PM CDT Plan of Treatment Health Maintenance Due Date Last Done Comments Breast Cancer Screening-Mammogram 1978 Cervical Cancer Screening 1978 Colon Cancer Screening-Colonoscopy 1978 Depression Screening 1978 Hepatitis C Screening 1978 DTaP/Tdap/Td Vaccine (1 - Tdap) 1989 Hepatitis B Screening 1996 Regular Well Visit/Exam 18-64 1996 Influenza Vaccine (#1) 2024 HPV Vaccines Aged Out No longer eligi ble based on patient's age to complete this topic Pneumococcal vaccine <65 Aged Out No longer eligible based on patient's age to complete this topic Insurance [employer] [place] Care Teams Director Of Loss Prevention Relationship Specialty Start Date End Date Lanre Johnson PA [address] [place] [id number] PCP - General Internal Medicine 12/14/23
--- OUTSIDE RECORDS SUMMARY | 2025-01-10 11:03 | XMS_ITS | Data Portability ---
Author Organization [facility], [employer] Address [address] [place] [address] Care Team Providers Care Director [employer] Name Role Phone RIVER MATIAS Manager Heart Failure [phone] Assessment Encounter Date Assessment Date Assessment LastModified by Organization Details LastModified Time 02/29/2016 02/29/2016 Patient presented for follow up. Studies ordered as below. Discussed plan with patient/careg iver, who expressed understanding . Follow up as noted below. [email or web address] Not available 02/29/2016 11:43:24 04/04/2017 04/04/2017 Patient presented for medication refill. Patient tolerating medication well at current dose without adverse effects. Refilled as below. Discussed plan with patient, who expressed understanding . Follow up as noted below. [email or web address] Not available 04/04/2017 11:00:53 Plan of Treatment Reminders Order Date Submit Date Provider Last Modified By Organization Details Last Modified Time Details Appointments None recorded. Lab lipid panel, serum 2017 018 [facility], [address], [facility] [address], [address], 8 15:01:52 CK (creatine kinase), total, serum 2017 018 [facility], [address], [facility] [address], [address], 8 15:01:52 CMP, serum or plasma 2017 018 [facility], [address], [facility] [address], [address], 8 15:01:52 TSH + free T4, serum 2017 018 [email or web address], [address], [address], [place], [address], 8 15:01:52 T3, free, serum or plasma 2017 018 [facility], [address], [address], [place], [address], 8 15:01:52 microalbum in/creatin ine, mass ratio, urine 2017 018 [email or web address], [address], [address], [place], [address], 8 15:01:53 CBC w/ diff 2015 016 [email or web address] Not available 6 09:13:33 iron + TIBC + ferritin, serum 2015 016 [email or web address] Not available 6 09:13:33 microalbum in/creatin ine, mass ratio, urine 2015 016 DBA_PATCH_ [id number] Not available 6 04:47:15 BMP, serum or plasma 2015 016 DBA_PATCH_ [id number] Not available 6 04:47:13 Referral gastroente rologist referral 2015 016 ROB Matias MD, [address] [place], [address], 7 16:27:09 neurologis t referral 2015 016 DBA_PATCH_ [id number] Kailash Feldman MD (Neurology), [address] [place] [address] [address], [place], [address], 6 04:47:06 Procedures None recorded. Surgeries None recorded. Imaging XR, chest, 2 view 2015 016 [email or web address] [facility], [facility], [address], [place], [address], 6 09:08:54 electrocar diogram 2015 016 DBA_PATCH_ [id number] [facility], [facility], [address], [place], [address], 6 04:47:10 Medication Orders montelukas t 10 mg tablet 2017 018 [facility], [address], [place], [place], [id number], 8 11:02:22 Norvasc 5 mg tablet 2017 018 [id number], [address], [place], [place], [id number], 8 11:02:20 Singulair 10 mg tablet 2015 016 [email or web address] [facility], [address], [place], [place], [id number], 8 10:59:47 Xyzal 5 mg tablet 2015 016 [email or web address] [facility], [address], [place], [place], [id number], 8 10:48:04 Norvasc 5 mg tablet 2015 016 DBA_PATCH_ [id number] [facility], [address], [place], [place], [id number], 6 04:47:48 Patient TargetsNo targets recorded. Patient Instructions Encounter Date Encounter Id Patient Instructions Last Modified By Organization Details Last Modified Time 12/22/2015 [id number] high blood pressure: care instructions ROB Not available 12/24/2015 13:58:00 learning about high blood pressure ROB Not available 12/24/2015 13:58:00 02/29/2016 [id number] spirometry testing* [email or web address] [id number] Not available 03/04/2016 04:47:54 high blood pressure: care instructions ROB Not available 03/02/2016 12:29:16 learning about high blood pressure ROB Not available 03/02/2016 12:29:16 Reason for Referral Neurologist Referral for Marcos brock Referring Physician: Matias Norwood, Internal Medicine, Encounter Date: 12/22/2015 Referring Physician: Matias Norwood, Internal Medicine, Encounter Date: 02/29/2016 Results Created Date Observation Date Name Description Value Unit Range Abnormal Flag Note LastModifiedBy Organization Detail LastModifiedTime 12/23/19 16 12/22/2015 elect aislinn barron am No observ ation record ed. [address], [place], [address], 12/23/2015 10:08:30 03/01/20 16 02/29/2016 carlos metry testi ng* No observ ation record ed. [address], [place], [address], 03/01/2016 15:48:39 Result Notes None recorded. Problems Name Problem SNOMED Code Status Onset Date Resolution Date Notes Provider Name and Address Organization Details Recorded Time Allergic rhinitis 65951922 Emely lai [facility] 6 09:03:47 Benign essential hypertension 7192289 Emely lai [facility] 6 09:03:55 Microalbuminur ia 147511182 Emely lai [facility] 6 09:04:09 Blood in urine 80049527 Emely lai [facility] 6 09:04:40 Tremor 93482422 Active Laura lai [facility] 6 09:04:49 Problem Notes None recorded. Procedures Surgical History Date Name Laterality Status Provider Name and Address Organization Details Recorded Time 09/26/19 17 Colonoscopy completed Matias Norwood MD [address], [place], [address], [facility] 10/07/2016 18:34:34 04/19/19 16 Date of Last Pap Smear completed NAVIN JAYCOX [facility] 02/29/2016 11:09:35 Imaging Results None recorded. Procedure Notes None recorded. Medical Equipment None Reported. Allergies Allergen ID Allergen Name Allergen Category Reaction Reaction Severity Criticality Documentation Date Start Date Code Code System Note Provider Name and Address Organization Details Recorded Time 3465 Benadryl medicatio n hives Not available Not available 11/10/201547747 7 RxNorm Laura Ibarra [facility] 6 09:01:35 3466 diphenhyd ramine medicatio n Not available Not available Not available 11/10/[address] [facility] 6 09:02:12 Medications Name Sig Start Date Stop Date Status Note LastModified by Organization Details LastModified Time amlodipine 5 mg tablet TAKE 1 TABLET BY MOUTH DAILY 2017 active Not Available Not Available Not Avai lable montelukast 10 mg tablet Take 1 tablet every day by oral route for 30 days. 2017 active Not Available Not Available Not Avai lable Xyzal 5 mg tablet Take 1 tablet every day by oral route for 30 days. 04/04 completed Not Available Not Available Not Available Delzicol 400 mg capsule (DR tablets inside) Take 2 capsules 3 times a day by oral route. active Not Available Not Available No t Available Vitals Date Recorded Body weight Respiratory rate Body mass index (BMI) Body height Body temperature Heart rate Systolic And Diastolic Provider Name and Address Organization Details Last Updated DateTime 8 51066.9 7 g 18 /min 21.8 kg/m2 167.64 cm 98 [degF] 64 /min 147/82 mm[Hg] June [facility] 8 10:44:47 Date Recorded Heart rate Respiratory rate Body temperature Body height Body weight Body mass index (BMI) Systolic And Diastolic Provider Name and Address Organization Details Last Updated DateTime 6 67 /min 14 /min 99 [degF] 167.64 cm 54729.1 2 g 22.9 kg/m2 123/80 mm[Hg] Isabel Pierre [facility] 6 16:06:07 Date Recorded Heart rate Systolic And Diastolic Provider Name and Address Organization Details Last Updated DateTime 01/10/2016 71 /min 144/98 mm[Hg] Seema Torres [facility] 01/10/2016 13:17:12 Date Recorded Body height Heart rate Respiratory rate Body weight Body mass index (BMI) Systolic And Diastolic Provider Name and Address Organization Details Last Updated DateTime 6 167.64 cm 66 /min 20 /min 87820.3 4 g 22.4 kg/m2 152/92 mm[Hg] NAVIN OSPINA [facility] 6 11:08:08 Social History Question Answer Notes LastModified by [employer] Details LastModified Time Tobacco Smoking Status Never Smoker Not Available [facility] 01/02/2020 03:11:41 What Was The Date Of Your Most Recent Tobacco Screening? 04/04/2017 [id number] Information not available 01/02/2020 Sex: Unknown Functional Status Question Answer Note LastModified by [employer] Details LastModified Time What is your level of alcohol consumption? Occasional [id number] Information not available 01/02/2020 Mental Status None recorded. Family History Relationship Description Onset Age of this Age Resolved Age Notes LastModified by Organization Details LastModified Time Father No current problems or disability [email or web address] Not available 11/09 09:05:39 Mother No current problems or disability [email or web address] Not available 11/09 09:05:39 Medical History No medical history recorded. Gynecological History Statement/Question Response Date of Last Pap Smear 04/19/2015 Obstetrics History GPAL:G 0 P 0 0 0 0 Past Encounters Encounter ID Performer Location Encounter Start Date Encounter Closed Date Diagnosis/Indication Diagnosis SNOMED-CT Code Diagnosis ICD10 Code Diagnosis IMO Codes Diagnosis Note [id number] Matias Norwood MD [facility], [place] [address] [facility] [address] [place] [address] 12/22/2015 15:42:22 12/22/2015 17:05:34 Benign essential hypertension 5060927 I10 Microalbuminuria 1315775 06 R80.9 Tremor 58543999 R25.1 (essential ) -- Allergic rhinitis 242586 04 J30.9 -- Currently doing very well off the medicine. Screening for malignant neoplastic disease 40609644 Z12.9 -- Patient reports she had a normal [employer]AN[employer] exam with Dr. Therese Vuong around April 2015 [id number] Matias Norwood MD [facility], [place] [address] [place] [address] 02/29/2016 10:45:56 02/29/2016 12:00:23 Hematochezia 057559310 K62.5 Benign ess ential hypertension 4219622 I10 Cough 97414399 R05 (x over 3 weeks; dry) Allergic rhinitis 672290 04 J30.9 [id number] DEMARCO NOEL APN [facility], [address] ,[address] [place] [address] 04/04/2017 10:35:33 04/04/2017 11:05:25 Renewal of prescription 139308666 Z76.0 Benign ess ential hypertension 4859080 I10 Eye exam completed 2016 Hyperlipid emia screening 033895531 Z13.220 Screening for malignant neoplasm of cervix 864031986 Z12.4 completed 2016 Administra tion of influenza vaccine 47572247 Z23 not interested Proctitis 0046196 K62.89 Gastroesop hageal reflux disease 957212695 K21.0 no current issues Depression screening 171 561322 Z13.89 neg Administra tion of diphtheria, pertussis, and tetanus vaccine 820972649 Z23 Seasonal allergy 5418944 04 J30.2 Health Concerns Section Related Observation LastModified by Organization Detai ls LastModified Time None Recorded Concern Status LastModified by Organization Details LastModified Time None Recorded Advance Directives Directive None Recorded Payers Insurance Date Sequence Insurance Name Policy Number Policy Hanson Covered Member ID Hanson Member ID Guarantor Name 11/08/2017 1 [employer] [id number] Adelita Dhillon [id number] Adelita Dhillon Notes Date Note Type Note Provider Name and Address Organization Details Recorded Time 12/22/2015 text/html DiabetesReported by Patient Patient denies any headache/chest discomfort or pain/diaphoresis/pam thing problems/nausea/vomit ing/any angina equivalent symptoms/visual changes Matias Norwood MD [address], [place], [address], [facility] 12/22/2015 16:59:53 02/29/2016 text/html Pt has been experiencing blood in stool for the past 3 mos, change in bowel movements, and mucous discharge from rectum, abdominal bloating and cramping. Matias Norwood MD [address], [place], [address], [facility] 02/29/2016 11:57:48 OBGyn Episode No OBEpisode recorded.
[2025-01-10 11:09] VITALS: BP 132/67; PULSE 62; RESP 16; TEMP 37.1; O2SAT 100
--- NOTE | 2025-01-10 11:16 | ED.ABDPAIN ---
HPI - Abdominal Pain General Chief Complaint: Abdominal Pain Stated Complaint: abd pain Time Seen by Provider: 01/10/25 11:03 History of Present Illness HPI narrative: 44-year-old female with history of ulcerative colitis on mesalamine. Patient presents to the emergency department at the request of her GI doctor to obtain CT scan lab work. Patient has been having a flare up and recently got prescribed steroid burst and taper by her GI doctor but requested she gets imaging done. Patient states she is having some abdominal cramping but no pain at this time. She attributes the cramping to the flare and has mucus and blood in her stool which is normal for her. Has been doing with UC for last 5 years. Gets yearly colonoscopies without any issues in the last one. No nausea vomiting, fever, chills. No traumatic injuries. Was otherwise in her normal state of health. Related Data Home Medications ?Medication ?Instructions ?Recorded ?Confirmed ?Last Taken ?Type amlodipine 5 mg tablet 5 mg PO DAILY 06/23/21 09/03/24 Unknown History mesalamine 400 mg capsule (with mg PO 09/03/24 09/03/24 Unknown History delayed release tablets inside) propranolol 40 mg tablet 40 mg PO Q12H 09/03/24 09/03/24 Unknown History zolpidem 10 mg tablet 10 mg PO 09/03/24 09/03/24 Unknown History Allergies Allergy/AdvReac Type Severity Reaction Status Date / Time diphenhydramine Allergy Mild Hives Verified 05/16/23 11:34 dairy Allergy Mild Nausea Uncoded 05/16/23 11:34 Review of Systems Review of Systems: [facility] Past Medical History Medical History Screening mammogram for breast cancer Abnormal uterine and vaginal bleeding, unspecified Colitis Surgical History Surgical History History of endometrial ablation H/O umbilical hernia repair H/O liposuction History of delivery x 2 Family History Family History Mother Hypertension Social History Social History Smoking status: Never smoker Second hand tobacco smoke exposure: No Alcohol intake: current Alcohol use details: occasional Substance use: never Substance use type: does not use Living arrangements: with family Occupation/Education: occupation Gender identity (if verbalized by the patient): Female Sexual Orientation (if Verbalized by the Patient): Straight or Heterosexual Spiritual care concerns: No Exam Narrative: GENERAL: [Well-appearing, well-nourished, and in no acute distress.] HEAD: [Normocephalic, atraumatic.] EYES: [PERRLA and EOMI.] ENT: Nares clear, no rhinorrhea or epistaxis. Mucous membranes moist. NECK: Supple. CHEST: [Clear to auscultation. No respiratory distress.] HEART: [Regular rate and rhythm]. No murmur heard. [Normal peripheral pulses.] ABDOMEN: [Soft, nondistended], [nontender], [No rigidity or guarding] EXTREMITIES: Normal range of motion. [No edema.] SKIN: Warm, dry, no rash. NEURO: [No focal deficits]. Alert and oriented [x3.] PSYCH: [Normal mood and affect.] Course Vital Signs Vital signs: Vital Signs Temperature 37.1 C 01/10/25 11:09 Pulse Rate 62 01/10/25 11:09 Respiratory Rate 16 01/10/25 11:09 Blood Pressure 132/67 01/10/25 11:09 Pulse Oximetry 100 01/10/25 11:09 Oxygen Delivery Room Air 01/10/25 11:09 Temperature 37.1 C 01/10/25 11:09 Pulse Rate 62 01/10/25 11:09 Respiratory Rate 16 01/10/25 11:09 Blood Pressure 132/67 01/10/25 11:09 Pulse Oximetry 100 01/10/25 11:09 Oxygen Delivery Room Air 01/10/25 11:09 MDM - Abdominal Pain MDM Narrative Medical decision making narrative: 44-year-old female with history of ulcerative colitis on mesalamine. Patient presents to the emergency department at the request of her GI doctor to obtain CT scan lab work. Patient has been having a flare up and recently got prescribed steroid burst and taper by her GI doctor but requested she gets imaging done. Patient states she is having some abdominal cramping but no pain at this time. She attributes the cramping to the flare and has mucus and blood in her stool which is normal for her. Has been doing with UC for last 5 years. Gets yearly colonoscopies without any issues in the last one. No nausea vomiting, fever, chills. No traumatic injuries. Was otherwise in her normal state of health. Patient is overall very well-appearing and minimally symptomatic at this time. Already started on steroid for her current UC flare. No pain at this time. Vital signs stable. Will obtain CT scan and laboratory studies at the request of her GI doctor for appropriate tailoring of for treatment and likely will be able to be discharged home upon completion of workup. Laboratory studies are normal. CT abdomen pelvis with retro sigmoid colitis with no complicating factors. Patient is safe for discharge given she is already on appropriate regimen for this and was given return precautions and follow-up instructions. Medical Records Attestation: I reviewed the patient's medical records. Lab Data Attestation: I reviewed the patient's lab results. 01/10/25 11:23 01/10/25 11:23 Labs: Lab Results 01/10/25 01/10/25 Range/Units 11:23 11:25 WBC 8.9 (4.5-10.0) K/mm3 RBC 4.79 (4.2-5.4) M/mm3 Hgb 13.3 D (12.0-15.0) g/dL Hct 40.9 (37.0-47.0) % MCV 85.4 (80-100) fl MCH 27.8 (26-34) pg MCHC 32.5 (32-36) g/dl RDW 12.8 (11.5-14.5) % Plt Count 259 (150-375) k/mm3 MPV 9.5 (7.4-10.4) fl Immature Gran % (Auto) 0.1 (0-0.5) % Neut % (Auto) 70.5 (45.5-73.1) % Lymph % (Auto) 15.1 L (18.3-44.2) % [place] % (Auto) 10.4 H (2.6-8.5) % Eos % (Auto) 3.4 (0-4.4) % Baso % (Auto) 0.5 (0.2-1.2) % Lymph # (Auto) 1.34 (0.9-3.2) K/mm3 [place] # (Auto) 0.9 H (0.1-0.6) K/mm3 Eos # (Auto) 0.3 (0-0.3) K/mm3 Baso # (Auto) 0.0 (0.0-0.1) K/mm3 Abs Immat Gran (auto) 0.01 (0.00-0.031) K/mm3 Absolute Neuts (auto) 6.3 (1.3-6.7) K/mm3 Absolute Nucleated RBC 0.000 (0.0-0.012) K/mm3 Nucleated RBC % 0.0 (0.0-0.2) % Sodium 135 L (137-145) mmol/L Potassium 3.5 (3.4-5.0) mmol/L Chloride 101 (98-107) mmol/L Carbon Dioxide 25 (22-30) mmol/L Anion Gap 9 (4-12) mmol/L BUN 8 (7-17) mg/dL Creatinine 0.60 L (0.7-1.0) mg/dL Estim Creat Clear Calc 93 ml/min Estimated GFR > 60 (59 - ) Glucose 102 (65-110) mg/dL Calcium 8.8 (8.4-10.2) mg/dL Total Bilirubin 0.6 (0.2-1.3) mg/dL AST 25 (14-36) U/L ALT 11 (6-35) U/L Alkaline Phosphatase 56 (38-126) U/L Total Protein 7.3 (6.3-8.2) g/dL Albumin 4.2 (3.5-5.1) g/dL Lipase 53 (23-300) U/L Urine Color Yellow (Yellow) Urine Appearance Clear (Clear) Urine pH 5.5 (5.0-9.0) Ur Specific [place] 1.016 (1.001-1.035) Urine Protein Negative (Negative) mg/dL Urine Glucose (UA) Negative (Negative) mg/dL Urine Ketones Negative (Negative) mg/dL Ur Blood (Man) Negative (Negative) Urine Nitrate Negative (Negative) Urine Bilirubin Negative (Negative) Urine Urobilinogen 0.2 (<2.0) mg/dL Leukocyte Esterase Rfl Negative (Negative) CHELLY/UL POC Urine HCG, Qual Negative (Negative) Imaging Data Attestation: I personally reviewed and interpreted this imaging study as follows: My impression: Impressions Abdomen/Pelvis CT 01/10/25 12:39 IMPRESSION: 1. Rectosigmoid colitis. No complicating features. 2. No other acute abnormality. Radiologist's impression: ITS Impressions Abdomen/Pelvis CT 01/10/25 12:39 IMPRESSION: 1. Rectosigmoid colitis. No complicating features. 2. No other acute abnormality. Discharge Plan Discharge Clinical Impression: Ulcerative colitis Patient Disposition: Home Condition: Stable Instructions: Antibiotic Form, Ulcerative Colitis (ED) Additional Instructions: All of your laboratory studies are normal. CT scan shows uncomplicated colitis. Follow-up with your GI doctor. Take the prednisone and mesalamine. Return with any emergent concerns, intractable fevers, dehydration, worsening pain or any other issues. Patient Language: Grenadian Prescriptions: No Action mesalamine 400 mg capsule (with del rel tablets) PO zolpidem 10 mg tablet 10 mg PO propranolol 40 mg tablet 40 mg PO Q12H amlodipine 5 mg tablet 5 mg PO DAILY Rx Instructions: takes in the afternoon Follow-up/Referrals: UNKNOWN,DOCTOR [Non-Staff] Time of Disposition: 12:49
[2025-01-10 11:29] LABS: Hematocrit 40.9 % (37.0-47.0); Hemoglobin 13.3 g/dL (12.0-15.0); Immature Granulocyte Percent A 0.1 % (0-0.5); Lymphocytes Absolute Auto 1.34 K/mm3 (0.9-3.2); Mean Corpuscular HGB Conc 32.5 g/dl (32-36); Mean Corpuscular Hemoglobin 27.8 pg (26-34); Mean Corpuscular Volume 85.4 fl (80-100); Nucleated Red Blood Cells Absolute Auto 0.000 K/mm3 (0.0-0.012); Nucleated Red Blood Cells Perc 0.0 % (0.0-0.2); Platelet Count Result 259 k/mm3 (150-375); Red Blood Count 4.79 M/mm3 (4.2-5.4); White Blood Count 8.9 K/mm3 (4.5-10.0)
[2025-01-10 11:30] LABS: BEDSIDEPREGUCG Negative (Negative)
[2025-01-10 11:32] LABS: Add Urine Microscopic? NO; Appearance Urine Clear (Clear); Glucose Urine UA Negative (Negative); Leukocyte Esterase Ur Negative LEU/UL (Negative); Nitrate Urine Negative (Negative); Specific Grav Ur 1.016 (1.001-1.035)
--- OUTSIDE RECORDS SUMMARY | 2025-01-10 11:32 | XMS_ITS | Clinical Summary ---
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
--- OUTSIDE RECORDS SUMMARY | 2025-01-10 11:32 | XMS_ITS | Data Portability ---
Author Organization [facility] [place] Address [address] [place] [address] [place] [address] Assessment Encounter Date Assessment Date Assessment LastModified by Organization Details LastModified Time 06/10/2020 06/10/2020 Annual gynecological exam performed. Patient will come back in a year unless there are new symptoms. [email or web address] Not available 04/15/2020 16:54:30 03/20/2023 03/20/2023 Annual gynecological exam performed. Patient will come back in a year unless there are new symptoms. Not available 03/20/2023 11:41:29 Plan of Treatment Reminders Order Date Submit Date Provider Last Modified By Organization Details Last Modified Time Details Appointments None recorded. Lab None recorded. Referral None recorded. Procedures None recorded. Surgeries None recorded. Imaging US, pelvis 2023 024 [place], [address], [place], [address], 4 12:55:11 US, transvagina l 2023 024 [email or web address] [place], [address], [place], [address], 4 12:55:11 MAMMO, screening, bilateral 2023 024 [facility], [address], [place] [address], [place], [address], 4 10:25:08 US, pelvis, complete 2023 024 [place], [address], [address], [place], [address], 4 11:17:07 Medication Orders cyclobenzap rine 10 mg tablet 2023 024 [email or web address] [facility] [address] [place], [address], 4 16:40:28 clindamycin HCl 300 mg capsule 2023 024 [email or web address] [facility] [address] [place], [address], 5 14:33:26 Cleocin T 1 % solution [email or web address] [facility] [address] [place], [address], 5 14:33:30 Patient TargetsNo targets recorded. Patient InstructionsNo instructions recorded. Reason for Referral None Reported. Results Created Date Observation Date Name Description Value Unit Range Abnormal Flag Note LastModifiedBy Organization Detail LastModifiedTime 03/20/19 24 03/20/2023 IMAGE GUIDE D PAP AND HPV REGAR DLESS image guided Pap, HPV regardless of Pap result SEE RESULT S BELOW CASE REPOR T: Cytol ogy Gynec ologi claudia Repor t Case: [id number] Autho kalpana king Provi mariam: Ryan Rangel Colle cted: 03/20 1637 SCALLOP SHUCKER Order ing Locat ion: [place] [facility] Recei zeb: 03/20 2344 First Scree n: Ariana Greer ed, [place] Patho logis t: Kirk Santana MD Speci men: Scree kacy Pap - Image d, Cervi x STATE MENT OF ADEQU ACY: Satis facto ry for evalu ation Trans forma tion zone compo nent prese nt FINAL DIAGN OSIS: Negat christine for Intra epith elial Lesio n or Julio curry (NIL) . Elect gypsy muse otto d by Kirk Santana MD on 024 at 9:57 AM ----- ----- ----- ----- ----- ----- ----- ----- ----- ----- ----- ----- ----- ----- ----- ----- ----- ---- HPV RESUL TS: HPV mRNA E6/E7 : No HPV mRNA Detec loni NOTE: This high risk HPV mRNA assay detec ts fourt een high- risk HPV types (16, 18, 31, 33, 35, 39, 45, 51, 52, 56, 58, 59, 66, 68) witho ut diffe renti ation . COMME NT: This speci men was revie wed by a Cytot echno logis t and/o r Patho logis t (as indic ated in this repor t) after evalu ation using the Thinp rep Imagi ng Syste m. CLINI CLAUDIA INFOR MATIO N: Menst rual Statu s: LMP (if appli cable ): Clini claudia Histo ry/Pr eviou s Pap: Type of Neopl tuyet (if appli cable ): Signi fican t Clini claudia Findi ngs: Other Histo ry: Hormo rashard (if appli cable ): PAP EDUCA SALENA L NOTE: The Pap Test is a scree kacy test with an inher ent false negat christine rate. Liqui d-bas ed sampl ing may decre ase, but will not elimi kolby, false negat christine resul ts. A negat christine resul t does not precl ude the prese nce and/o r devel opmen t of disea se, since the prese nce of abnor mal cells in the sampl e depen ds on the locat ion of the lesio n and sampl ing techn ique. Lee nued regul ar scree kacy is the best metho d of cance r preve ntion . If repor loni cytol ogic findi ng do not corre late with physi claudia and/o r histo rical findi ngs, furth er inves tigat ion is recom lauren smith, as maguei darron garner nted. Not Available [facility] (Lab) [address], [place], [address], 03/22/2023 10:59:45 04/18/19 22 MAMMO , scree kacy, bilat eral No observ ation record ed. [email or web address] Not Available 04/2023 12:00:30 03/27/19 24 03/27/2023 US, pelvi s No observ ation record ed. [email or web address] [place] [address], [place], [address], 03/27/2023 12:52:10 03/27/19 24 03/27/2023 US, trans vagin al No observ ation record ed. [email or web address] [place] [address], [place], [address], 03/27/2023 12:52:01 03/27/19 24 03/27/2023 US, pelvi s No observ ation record ed. ROB [facility]gen[facility] [address], [place], [address], 03/29/2023 22:35:36 Result Notes None recorded. Problems Name Problem SNOMED Code Status Onset Date Resolution Date Notes Provider Name and Address Organization Details Recorded Time Hypertensi ve disorder 05370394 Active 2015 HTN;Record ed Elsewhere: No Locatio n: [facility] Latonia rce: EHR Chroni c: N Practice ID: [id number] Billa ble Time: 01:00:00 PM Not Available [facility] 15:56:03 Problem Notes None recorded. Procedures Surgical History Date Name Laterality Status Provider Name and Address Organization Details Recorded Time 05/16/19 24 HYSTEROSCOPY, WITH ENDOMETRIAL ABLATION (SURG) completed Shazia Mike [place] - [facility] 05/17/2023 10:06:21 03/20/19 24 Date of Last [facility]/07[facility]2023 19:21:53 06/18/19 23 Date of Last Mammogram completed Fawn [facility] 03/20/2023 11:43:58 03/19/19 23 Date of Last Colonoscopy completed [facility] 06/07/2023 19:15:25 03/19/19 23 Colonoscopy completed [facility] 06/07/2023 19:28:18 07/18/19 21 liposuction of subcutaneous tissue completed [facility] 06/07/2023 19:28:07 03/19/19 13 umbilical hernioplasty completed [facility] 06/07/2023 19:27:27 11/17/19 06 section completed [facility] 03/20/2023 11:45:58 10/18/19 06 Tubal Ligation completed [facility] 06/07/2023 19:27:19 04/14/18 99 section completed [facility] 03/20/2023 11:45:46 Imaging Results None recorded. Procedure Notes None recorded. Medical Equipment None Reported. Allergies Allergen ID Allergen Name Allergen Category Reaction Reaction Severity Criticality Documentation Date Start Date Code Code System Note Provider Name and Address Organization Details Recorded Time 15782 diphenhyd ramine medicatio n Not available Not available Not available 04/15/2020 3498 RxNorm Maria Elena Cruz [facility] 16:54:53 50417 Milk (substanc e) food,medi cation Not available Not available Not available 06/07/2023 75646 002 SNOMED Cielo Bradford [facility] 03/21/202 4 19:28:42 Medications Name Sig Start Date Stop Date Status Note LastModified by Organization Details LastModified Time cyclobenz aprine 10 mg tablet Take 1 tablet 3 times a day by oral route. 2023 active Not Available Not Available Not Avai lable clindamyc in HCl 300 mg capsule TAKE 1 CAPSULE BY MOUTH TWICE DAILY BEFORE MEAL(S) FOR 7 DAYS 04/03 completed Not Available Not Available Not Available ibuprofen 800 mg tablet TAKE 1 TABLET BY MOUTH EVERY 4-6 HOURS NEEDED FOR PAIN. MAX OF 4 TABLETS EVERY DAY active Not Available Not Available No t Available tretinoin 0.025 % topical cream APPLY A THIN LAYER TO AFFECTED AREA OF BUTTOCKS BEFORE BEDTIME AFTER WASHINNG . LAYER WITH MOISTURI ZER NEEDED. active Not Available Not Available No t Available amlodipin e 2.5 mg tablet take 1 tablet by oral route every day 04/03 completed Prescrib ed Elsewher e: Yes Loca tion: [facility] odify By: karey morris DateTime : 02/27/20 18 11:00:00 AM Not Available Not Available Not Available amlodipin e 5 mg tablet TAKE 1 TABLET BY MOUTH EVERY DAY active Not Available Not Available No t Available peg-elect rolyte solution 420 gram oral solution DIRECTED active Not Available Not Available No t Available Hair Vitamins tablet 06/10 completed Prescrib ed Elsewher e: Yes Loca tion: [facility] odify By: joya billings DateTime : 04/09/19 15 01:00:00 PM Not Available Not Available Not Available promethaz ine 25 mg tablet TAKE 1/2 TABLET BY MOUTH EVERY 6 HOURS NEEDED FOR NAUSEA active Not Available Not Available No t Available albuterol sulfate HFA 90 mcg/actua tion aerosol inhaler INHALE 2 PUFFS BY MOUTH EVERY 8 HOURS NEEDED active Not Available Not Available No t Available propranol ol 20 mg tablet TAKE 1 TABLET BY MOUTH THREE TIMES DAILY active Not Available Not Available No t Available carbidopa 25 mg-levodo pa 100 mg tablet active Not Available Not Available Not Available clindamyc in phosphate 1 % topical solution APPLY A THIN LAYER TO THE AFFECTED AREA(S) TOPICALL Y TWICE DAILY DURING FLARE UP FOR MAX OF 7 DAYS. 04/03 completed Not Available Not Available Not Available Allergy Severe 12.5 mg-500 mg tablet take 2 tablet by oral route every 4 - 6 hours as needed not to exceed 8 tablets in 24hrs 06/10 completed Prescrib amol Arora e: Yes [facility] By: karey morris DateTime : 02/27/20 11:00:00 AM Not Available Not Available Not Available mesalamin e 04/03 completed Not Available Not Available Not Available mesalamin e 1.2 gram tablet,de layed release TAKE 2 TABLETS BY MOUTH ONCE DAILY WITH A MEAL active Not Available Not Available No t Available mesalamin e 400 mg capsule (with delayed release tablets inside) TAKE 2 CAPSULES BY MOUTH THREE TIMES DAILY active Not Available Not Available No t Available Vitals Date Recorded Body height Body mass index (BMI) Body weight Systolic And Diastolic Provider Name and Address Organization Details Last Updated DateTime 03/20/2023 167.64 cm 27 kg/m2 52570.93 g 131/83 mm[Hg] Fawn Castelan [facility] 03/20/2023 11:42:48 Date Recorded Body height Body mass index (BMI) Body weight Systolic And Diastolic Provider Name and Address Organization Details Last Updated DateTime 04/23/2023 167.64 cm 27.3 kg/m2 85905.11 g 125/80 mm[Hg] Izzy Sena [facility] 04/23/2023 15:53:55 Date Recorded Body height Body mass index (BMI) Body weight Systolic And Diastolic Provider Name and Address Organization Details Last Updated DateTime 05/24/2023 167.64 cm 27.1 kg/m2 65251.52 g 121/80 mm[Hg] Cielo Bradford [facility] 05/24/2023 16:20:18 Date Recorded Body height Body mass index (BMI) Body weight Systolic And Diastolic Provider Name and Address Organization Details Last Updated DateTime 06/10/2020 167.64 cm 26 kg/m2 58483.37 g 151/84 mm[Hg] Maria Elena Cruz [facility] 06/10/2020 14:17:05 Social History Question Answer Notes LastModified by Organizat ion Details LastModified Time Tobacco Smoking Status Never Smoker Cielo Bradford [facility] 06/07/2023 19:26:43 Are You Blind Or Do You Have Difficulty Seeing? No [email or web address] Information n ot available 06/07/2023 What Is Your Level Of Caffeine Consumption? Occasional [email or web address] Information not available 06/07/2023 In The 14 Days Before Symptom Onset, Have You Had Close Contact With A Laboratory-confirm ed COVID-19 While That Case Was Ill? No Information n ot available 03/20/2023 In The 14 Days Before Symptom Onset, Have You Had Close Contact With A Person Who Is Under Investigation For COVID-19 While That Person Was Ill? No Information not available 03/20/2023 Have You Been To An Area Known To Be High Risk For COVID-19? No Information not available 03/20/2023 Are You Deaf Or Do You Have Serious Difficulty Hearing? No [email or web address] Information not available 06/07/2023 What Type Of Diet Are You Following? REGULAR [email or web address] Information n ot available 06/07/2023 Have You Ever Been Counseled For Unhealthy Alcohol Use? No [email or web address] Information not available 06/07/2023 Do You Use Your Seat Belt Or Car Seat Routinely? Yes [email or web address] Information not available 06/07/2023 Do You Have Smoke And Carbon Monoxide Detectors In Your Home? Yes [email or web address] Information not available 06/07/2023 Do You Use Sunscreen Routinely? Yes [email or web address] Information not available 06/07/2023 Has Tobacco Cessation Counseling Been Provided? No [email or web address] Information not available 06/07/2023 Do You Have Difficulty Walking Or Climbing Stairs? No [email or web address] Information not available 06/07/2023 Sex: Unknown Functional Status Question Answer Note LastModified by Organizat ion Details LastModified Time Do you use any illicit or recreational drugs? No Information not available 06/07/2023 Do you or have you ever used any other forms of tobacco or nicotine? No [email or web address] Information not available 06/07/2023 What is your level of alcohol consumption? Occasional [email or web address] Information not available 06/07/2023 Are you able to walk independently without assistance or assistive devices? [email or web address] Information not available 06/07/2023 Are you able to care for yourself independently? Yes [email or web address] Information not available 06/07/2023 Do you have difficulty dressing, bathing, grooming, or toileting? No [email or web address] Information not available 06/07/2023 What is your exercise level? Occasional [email or web address] Information not available 06/07/2023 Mental Status Question Answer Note LastModified by Organization D etails LastModified Time Do you feel stressed (tense, restless, nervous, or anxious, or unable to sleep at night)? [id number] [email or web address] Information not available 06/07/2023 Family History Relationship Description Onset Age of this Age Resolved Age Notes LastModified by Organization Details LastModified Time Mother Carcinoma of uterine cervix, invasive [email or web address] Not available 2020 16:56:26 Notes:Mother: Cervical cance r Medical History Condition Response Allergies (Food, seasonal, environmental ) Y Other N Breast Cancer N Drug/Latex Allergies/Reactions Y Blood Transfusion N Dermatologic Disorders N Lung Disease N Defects or Inherited Disease N Breast Problem N Gestational Diabetes N Hematologic disorders N Anesthesia Complications N History of STI N Deep Vein Thrombosis N Polycystic ovary syndrome N Anxiety Disorder N Autoimmune disease N Arthritis N Infertility N Polyps N Acid Reflux (GERD) N History of abnormal pap N Cancer N Stroke N Varicosities N Neurologic/Epilepsy N Endometriosis N High Cholesterol N Headaches N Fibromyalgia N Kidney Disease N Heart Problems N Kidney or Bladder Problems N Thyroid Problems N GI Problems Y Eating Disorder N Anemia N Art (IVF or FET) N Psychiatric Illness N Ovarian Cancer N Diabetes N Pulmonary (TB, Asthma) N Hepatitis/Liver Disease N No Past Medical History N Eczema N Urinary Tract Infection N Abuse/Domestic Violence N Asthma N Trauma/Violence N Depression/ depression N Heart Disease N Pre-Eclampsia N Hypertension Y Osteoporosis N Thrombophilias N Gynecological History Statement/Question Response Abnormal Pap N Date of Last Mammogram 06/17/2022 Date of LMP 05/06/2023 STIs/STDs N HPV Vaccine N Current Control Method Tubal Ligat ion Are cycles usually normal Y Date of Last Colonoscopy 03/19/2022 Sexually Active? Y Menses Monthly Y Date of DEXA bone scan Date of Last Pap Smear 03/20/2023 Sexual Problems? N Desired Control Method Ablation LMP Approximate Obstetrics History GPAL:G 3 P 3 0 0 3 Type Value Full Term 3 Living 3 Total 3 Past Encounters Encounter ID Performer Location Encounter Start Date Encounter Closed Date Diagnosis/Indication Diagnosis SNOMED-CT Code Diagnosis ICD10 Code Diagnosis IMO Codes Diagnosis Note [id number] Jahaira Carrizales , [facility] [address] [address] 06/10/2020 13:53:11 06/10/2020 14:54:05 Gynecologic examination 32130907 Z01.419 Suggested Calcium with Vitamin D 1200-1500m g daily. Patient advised to get an annual flu shot in the fall and she could obtain at [facility] or [facility] care clinic. Also to obtain TDap vaccinatio n if you have not had one in the last 10 years. Recommend yearly mammograms . Encouraged monthly self breast exams. Encourage safe sexual practices, to use condoms and limit partners if not already in a monogamous relationsh ip. Engage in daily exercise of low impact aerobic exercise 45-60 minutes 4-5 times weekly. Avoid tobacco and illicit drugs as well as using moderation with alcohol intake less than 1-2 8 oz beverages daily. This lifestyle behavior pattern will lead to less health conditions and longer life span. If BMI greater than 25 weight watchers or dietary consult advised. All questions have been answered. Patient appears to understand informatio n, but if you have any questions please call or respond to this email. Take Calcium with Vitamin D 1200mg daily if not receiving in daily diet. It is strongly advised to have an annual flu shot and up can obtain at most pharmacies . If you have not had a TDap shot in the last 10 years you should obtain one as well. Discussed with patient & provided with informatio n regarding Gardisil vaccine to prevent the 4 strains for HPV that cause cervical cancer if under age 26. Encourage safe sexual practices, to use condoms and limit partners if not already in a monogamous relationsh ip. Do monthly self breast exams. Have mammogram yearly or every other year depending on family history. BRCA testing is now available for patients with strong genetic history of female cancer. If interested contact the office. Engage in daily exercise of low impact aerobic exercise 45-60 minutes 4-5 times weekly. Avoid tobacco and illicit drugs as well as using moderation with alcohol intake less than 1-2 8 oz beverages daily. This lifestyle behavior pattern will lead to less health conditions and longer life span. If BMI greater than 25 weight watchers or dietary consult advised. Patient received above instructio ns, and questions have been answered. If you have any questions please call or respond to this email. Patient was made aware of the patient portal and may obtain a paper copy of today's plan if desired. No issues or questions this year. Option Pap q3yrs per asccp unless otherwise indicated. Monogamous x 27yrs Getting butt lift in [place] Jul 31 2020 Tasha ordered Hasn't taken BP meds yet this morning. To f/u PCP if still elevated after meds consumed. Feeling fine no sx's. [id number] Jahaira Carrizales , [facility] [address] [address] 03/20/2023 11:33:27 03/20/2023 12:09:35 Gynecologic examination 81500012 Z01.419 Suggested Calcium with Vitamin D 1200-1500m g daily. Patient advised to get an annual flu shot in the fall and she could obtain at [facility] or [facility] care clinic. Also to obtain TDap vaccinatio n if you have not had one in the last 10 years. Recommend yearly mammograms . Encouraged monthly self breast exams. Encourage safe sexual practices, to use condoms and limit partners if not already in a monogamous relationsh ip. Engage in daily exercise of low impact aerobic exercise 45-60 minutes 4-5 times weekly. Avoid tobacco and illicit drugs as well as using moderation with alcohol intake less than 1-2 8 oz beverages daily. This lifestyle behavior pattern will lead to less health conditions and longer life span. If BMI greater than 25 weight watchers or dietary consult advised. All questions have been answered. Patient appears to understand informatio n, but if you have any questions please call or respond to this email. 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 She has longstandi ng very heavy bleeding. Her menses are regular. However, they require double protection . Patient has accidents, getting blood on her bedding and clothing. Is affected work. She changes a pad or tampon every hour. She leaks blood around the pad and tampon. This bleeding has a profound impact on her quality of life and her activities of daily living. patient is familiar with endometria l ablation. Is very curious about endometria l ablation wants to proceed with endometria l ablation. I explained the procedure the patient in great detail. We talked about the different settings in which this procedure is performed. She is going to decide which setting she would like to have her procedure and will contact us. We spent over 40 minutes face-to-fa ce. More than 50% was counseling . we made a decision to perform surgery. [id number] Omkar Edwards MD [place] [address] [address] 05/24/2023 16:00:51 05/24/2023 23:35:11 Strain of neck muscle 222608369 S16.1XXA 42-year-ol d female with menorrhagi a. She presents for follow-up on menorrhagi a. Underwent endometria l ablation at the hospital. She is recovering normally. She denies any nausea, vomiting, fever, chills. She denies any foul-smell ing vaginal bleeding. She will follow up as needed. Discussed neck pain. Was examined. Her try episodes are tender. She has difficulty rotating her head. To use muscle relaxers, 10s unit, heat. Health Concerns Section Related Observation LastModified by Organization Detai ls LastModified Time None Recorded Concern Status LastModified by Organization Details LastModified Time None Recorded Advance Directives Directive None Recorded Payers Insurance Date Sequence Insurance Name Policy Number Policy Hanson Covered Member ID Hanson Member ID Guarantor Name 11/16/2023 PAYMENT PLAN Adelita Alejo 10/16/2023 PAYMENT PLAN Adelita Alejo 05/18/2020 1 *SELF PAY* Rosa Maria martinez Alejo 03/20/2023 1 [place] [id number] Adelita Mcin [id number] Adelita Alejo 03/20/2023 1 [place] [id number] Adelita Mcin [id number] Adelita Alejo 04/05/2024 1 [place] [id number] Paul Bhatti Alejo [id number] Adelita Alejo 07/03/2023 PAYMENT PLAN Adelita Alejo Notes Date Note Type Note Provider Name and Address Organization Details Recorded Time 1 text/html Annual GYNReported by PatientHistoryFor history, patient reportsno gynecologic complaints.Genitourinary symptomsFor menstrual cycle, patient reportsnormal menses. For urinary symptoms, patient reportsno hematuriaandno incontinence. For vulva, patient reportsno genital lesion. For vagina, patient reportsnormal vaginal discharge.Breast symptomsFor breast, patient reportsno breast pain,no breast lump, andno nipple discharge.ContraceptionFo r current contraception, patient reportssatisfied with current contraceptionandcondoms.E ndocrine symptomsFor sexual complaints, patient reportsno sexual complaints,no pain during intercourse, andnormal libido. For menopausal symptoms, patient reportsno menopausal symptomsandnormal vaginal lubrication.Psychological symptomsFor psychological symptoms, patient reportsno depression,no anxiety, andno pmdd.Preventative measuresFor preventive measures, patient reportsencourage self breast examination,encourage regular exercise,encourage no tobacco use,encourage regular mammograms starting age 40, andneeds to schedule mammogram. SYBIL [facility]- [address], [place], [address], [facility] 06/10/2020 14:48:51 4 text/html Annual GYNReported by PatientGenitourinary symptomsFor menstrual cycle, patient reportsmenorrhagia. For urinary symptoms, patient reportsno hematuriaandno incontinence. For vulva, patient reportsno genital lesion. For vagina, patient reportsnormal vaginal discharge.Breast symptomsFor breast, patient reportsno breast pain,no breast lump, andno nipple discharge.ContraceptionFo r current contraception, patient reportssatisfied with current contraceptionandtubal ligation.Endocrine symptomsFor sexual complaints, patient reportsno sexual complaints,no pain during intercourse, andnormal libido. For menopausal symptoms, patient reportsno menopausal symptomsandnormal vaginal lubrication.Psychological symptomsFor psychological symptoms, patient reportsno depression,no anxiety, andno pmdd.Preventative measuresFor preventive measures, patient reportsencourage self breast examination,encourage regular exercise,encourage no tobacco use,encourage regular mammograms starting age 40,followed with yearly pap smears, andmammogram performed within the past year. Jahaira Carrizales, [facility] [address], [place], [address], [facility] 03/20/2023 12:01:59 4 text/html This patient is a XX-year-old female presents for heavy vaginal bleeding. She has longstanding very heavy bleeding. Her menses are regular. However, they require double protection. Patient has accidents, getting blood on her bedding and clothing. Is affected work. She changes a pad or tampon every hour. She leaks blood around the pad and tampon. This bleeding has a profound impact on her quality of life and her activities of daily living. patient is familiar with endometrial ablation. Is very curious about endometrial ablation wants to proceed with endometrial ablation. I explained the procedure the patient in great detail. We talked about the different settings in which this procedure is performed. She is going to decide which setting she would like to have her procedure and will contact us. We spent over 40 minutes [id number]. More than 50% was counseling. we made a decision to perform surgery. Omkar Edwards MD [address], [place], [address], [place] [facility] 04/23/2023 16:10:40 4 text/html 42-year-old female with menorrhagia. She presents for follow-up on menorrhagia. Underwent endometrial ablation at the hospital. She is recovering normally. She denies any nausea, vomiting, fever, chills. She denies any foul-smelling vaginal bleeding. She will follow up as needed. Cielo lai, [facility] 06/07/2023 19:18:01 OBGyn Episode Ob Episode Information Episode Created Date Number of Fetuses Patient Bloodtype Patient rh Status Prepregnancy Weight lbs Domestic Partner Domestic Partner Phone Father Name Business Enterprise Officer Status 04/15/19 21 1 CLOSED Fetus Data First Name Last Name Admitted to NICU Weight (g) Sex Living Outcome Pediatric Complications Fetus ID Race Codes Race Delivery Type 3628.73 6 M Full Term [id number] Primary Gil Calculation Initial Gil Date Initial Exam Date Initial Exam Provider Initial Ultrasound Date Last Menstrual Period Date Ultra Sound Weeks Gestation 0 Eighteen To Twenty Week Gil Update Ultra Sound Date Fundal Height At Umbil Quickening Date Ultra Sound Latest Weeks Gestation Final Gil Confirmed By Final Gil Confirmed Date Final Gil Date Ultra Sound Latest Days Gestation 0 0 Menstrual History Last Menstrual Date Menses Monthly On Bcp Conception Prior Menses Frequency Hcg Plus Date Menarche Onset Age Delivery Information Delivery Date Delivery Type Labor Anesthesia Weeks Gestation Incision Type Labor Labor Length Hrs Delivered By Post Complications Tubal Sterilization Discharge Date Comments 6 Discharge Information Feeding Method Contraceptive Method Maternal HG B and HCT Levels Ob Episode Information Episode Created Date Number of Fetuses Patient Bloodtype Patient rh Status Prepregnancy Weight lbs Domestic Partner Domestic Partner Phone Father Name Business Enterprise Officer Status 04/15/19 21 1 CLOSED Fetus Data First Name Last Name Admitted to NICU Weight (g) Sex Living Outcome Pediatric Complications Fetus ID Race Codes Race Delivery Type 3628.73 6 M Full Term [id number] Primary Gil Calculation Initial Gil Date Initial Exam Date Initial Exam Provider Initial Ultrasound Date Last Menstrual Period Date Ultra Sound Weeks Gestation 0 Eighteen To Twenty Week Gil Update Ultra Sound Date Fundal Height At Umbil Quickening Date Ultra Sound Latest Weeks Gestation Final Gil Confirmed By Final Gil Confirmed Date Final Gil Date Ultra Sound Latest Days Gestation 0 0 Menstrual History Last Menstrual Date Menses Monthly On Bcp Conception Prior Menses Frequency Hcg Plus Date Menarche Onset Age Delivery Information Delivery Date Delivery Type Labor Anesthesia Weeks Gestation Incision Type Labor Labor Length Hrs Delivered By Post Complications Tubal Sterilization Discharge Date Comments 9 Discharge Information Feeding Method Contraceptive Method Maternal HG B and HCT Levels Ob Episode Information Episode Created Date Number of Fetuses Patient Bloodtype Patient rh Status Prepregnancy Weight lbs Domestic Partner Domestic Partner Phone Father Name Business Enterprise Officer Status 04/15/19 21 1 CLOSED Fetus Data First Name Last Name Admitted to NICU Weight (g) Sex Living Outcome Pediatric Complications Fetus ID Race Codes Race Delivery Type 3316.66 4704 M Full Term [id number] Vaginal Delivery Gil Calculation Initial Gil Date Initial Exam Date Initial Exam Provider Initial Ultrasound Date Last Menstrual Period Date Ultra Sound Weeks Gestation 0 Eighteen To Twenty Week Gil Update Ultra Sound Date Fundal Height At Umbil Quickening Date Ultra Sound Latest Weeks Gestation Final Gil Confirmed By Final Gil Confirmed Date Final Gil Date Ultra Sound Latest Days Gestation 0 0 Menstrual History Last Menstrual Date Menses Monthly On Bcp Conception Prior Menses Frequency Hcg Plus Date Menarche Onset Age Delivery Information Delivery Date Delivery Type Labor Anesthesia Weeks Gestation Incision Type Labor Labor Length Hrs Delivered By Post Complications Tubal Sterilization Discharge Date Comments 2 Discharge Information Feeding Method Contraceptive Method Maternal HG B and HCT Levels
[2025-01-10 11:40] LABS: Alanine Aminotransferase 11 U/L (6-35); Albumin Level 4.2 g/dL (3.5-5.1); Alkaline Phosphatase 56 U/L (38-126); Anion Gap 9 mmol/L (4-12); Aspartate Amino Transferase 25 U/L (14-36); Bilirubin,Total 0.6 mg/dL (0.2-1.3); Blood Urea Nitrogen 8 mg/dL (7-17); Calcium 8.8 mg/dL (8.4-10.2); Carbon Dioxide 25 mmol/L (22-30); Chloride 101 mmol/L (98-107); Estimated CRCL calculation 93 ml/min; Estimated Glomerular Filt Rate > 60; Glucose 102 mg/dL (65-110); Lipase 53 U/L (23-300); Potassium 3.5 mmol/L (3.4-5.0); Sodium 135 mmol/L (137-145); Total Protein 7.3 g/dL (6.3-8.2)
[2025-01-10 12:52] VITALS: BP 127/77; PULSE 64; RESP 17; O2SAT 100
== END 2025-01-10 12:59 | disposition home or self-care (01) ==
PROVIDERS: Emergency Medicine; Emergency Provider Student in an Organized Health Care Education/Training Program
DX: K51.90 Ulcerative colitis, unspecified, without complications (principal)
CPT/HCPCS: 36415; 74177; 80053; 81003; 81025; 83690; 85025; 99284; Q9967